=== PATIENT | male | born 1960 | race Caucasian/White ===

== ENCOUNTER → 2025-04-30 | Outpatient (CLI) | payer BC, SELFPAY ==
--- NOTE | 2025-04-30 09:40 | RAD_ITS ---
PROCEDURE: SHOULDER MIN 2 VIEWS 04/30/2025 REASON FOR EXAM: PAIN TECHNIQUE: SHOULDER MIN 2 VIEWS COMPARISON: None RAD/Shoulder min 2 Views IMPRESSION: No acute fracture or dislocations. Mild degenerative changes of the right shou lder. No large joint effusion. No acute soft tissue abnormalities. No radiographic foreign body. Reading Location: [id number]
--- NOTE | 2025-04-30 09:42 | RAD_ITS ---
EXAM: XR Lumbosacral Spine, 4 or 5 Views CLINICAL INDICATION: NEUROPATHY TECHNIQUE: Frontal, lateral and bilateral oblique views of the lumbar spine. COMPARISON: No relevant prior studies available. FINDINGS: VERTEBRAE: Mild endplate degenerative changes of the visualized spine. Mild facet arthropathy of L3-S1. No acute fracture. Normal alignment. SACRUM/COCCYX: Unremarkable as visualized. No acute fracture. DISC SPACES: No acute findings. No significant narrowing. SOFT TISSUES: Unremarkable. RAD/L/S Spine Min 4 Views IMPRESSION: Degenerative changes as above. Reading Location: [id number]
--- NOTE | 2025-04-30 09:42 | RAD_ITS ---
EXAM: XR Left Shoulder Complete, 2 or More Views CLINICAL INDICATION: BILATERAL SHOULDER PAIN TECHNIQUE: Two or more views of the left shoulder. COMPARISON: No relevant prior studies available. FINDINGS: BONES/JOINTS: Mild degenerative changes of the acromioclavicular and glenohumeral joints. No acute fracture. No dislocation. SOFT TISSUES: Unremarkable. RAD/Shoulder min 2 Views IMPRESSION: Degenerative changes as above. Reading Location: [id number]
[2025-04-30 10:02] LABS: Mucous, Urine 0 SEEN /hpf (<or=2+); Red Blood Cells-Urine 0 SEEN /hpf (0-5)
[2025-04-30 12:25] LABS: Color, Urine Yellow (Yellow); Glucose, Dipstick 1000 mg/dl (Normal); Ketone-Dipstick 5 mg/dl (Negative); Leukocyte Esterase-Dipstick Negative /ul (Negative); Nitrite-Dipstick Negative (Negative); Occult Blood-Urine Negative /ul (Negative); Protein-Dipstick Negative (Negative); Specific Gravity, Urine 1.015 (1.002-1.030); Urine Bilirubin Dipstick Negative (Negative)
[2025-04-30 12:30] LABS: Hematocrit 44.2 % (40-54); Hemoglobin 14.8 g/dL (13.0-16.5); Immature Granulocytes Count 0.020 X10^3/uL (0.0-0.0); Mean Corp Hgb Conc 33.5 g/dL (32-36); Mean Corpuscular Volume 89.8 fL (80-94); Mean Platelet Vol. 10.7 fl (6.2-12.0); NRBC Flagged by Analyzer 0 % (0-5); Platelet Count 190 K/mm3 (150-450); RBC Distribution Width CV 12.4 % (11.6-14.6); RBC Distribution Width SD 40.7 fl (35.1-43.9); Red Blood Count 4.92 M/mm3 (4.6-6.2); White Blood Count 6.0 K/mm3 (4.4-11.0)
[2025-04-30 12:32] LABS: Squamous Epithelial Cells - UA 0-5 SEEN /hpf (0-5)
[2025-04-30 13:34] LABS: Cholesterol 212 mg/dL (<=200); Low Density Lipoprotein Calc. 125 mg/dL; PSA,Total - Annual Screen 1.35 ng/mL (0.02-4.00); Triglycerides 182 mg/dL; Very Low Density Lipoprotein 36 mg/dL (5-40); cholesterol:hdl ratio screen 4.20
[2025-04-30 13:57] LABS: AST(SGOT) 25 U/L (<=37); Alanine Aminotransfer ALT/SGPT 37 U/L (<=46); Albumin, Serum 4.1 g/dL (3.4-4.8); Alkaline Phosphatase 105 U/L (40-129); Anion Gap 15 (5-15); BUN 9 mg/dL (4-19); BUN/Creat Ratio 9.0 RATIO (10-20); Calcium,Total 9.2 mg/dL (7.6-11.0); Carbon Dioxide 19.3 mmol/L (21.0-32.0); Chloride 98 mmol/L (98-108); Globulin 2.8 g/dL (2.2-4.2); Glucose 414 mg/dL (70-99); Potassium 4.1 mmol/L (3.3-5.1)
[2025-05-03 14:08] LABS: ANTINUCLEAR ANTIBODIES DIRECT Negative (Negative)
[2025-05-05 12:09] LABS: Testosterone, % Free 2.85 % (1.50-4.20); Testosterone, Free 7.78 ng/dL (5.00-21.00)
== END | disposition home or self-care (01) ==
LOC: MTLAB 09:42
PROVIDERS: PCP Internal Medicine; Referring Provider Internal Medicine; Visit Provider Internal Medicine
DX: M25.511 Pain in right shoulder (principal); M25.512 Pain in left shoulder; M54.16 Radiculopathy, lumbar region; Z13.6 Encounter for screening for cardiovascular disorders; N52.9 Male erectile dysfunction, unspecified; Z12.5 Encounter for screening for malignant neoplasm of prostate; R35.0 Frequency of micturition; R53.81 Other malaise; R53.83 Other fatigue; L30.9 Dermatitis, unspecified; R73.9 Hyperglycemia, unspecified
CPT/HCPCS: 36415; 72110; 73030; 80053; 80061; 81001; 83036; 84153; 84402; 84403; 85025; 86038; 86225; G0103

== ENCOUNTER 2025-05-28 08:30 | Outpatient (RCR) | payer BC, SELFPAY ==
--- NOTE | 2025-05-07 13:53 | HP.PTEVAL_ITS ---
Patient's Visit Information Visit Information Visit Information: ALEXI BRICENO is a 65 year old M referred to Physical Therapy by Dr. Gallo Palmer MD with a diagnosis of B Shoulder pain. Date of Evaluation: 05/07/25 Physical Therapist: BENNIE Maloney Visit Plan Frequency: 2x /Week Duration: 6 Weeks Plan: 2x/ WEEK FOR 6 WEEKs for end range PROM, AAROM, AROM of B shoulders, postural and RC strength. I feel pt will recover quickly and will gear most exercises toward HEP HEP: supine wand flexion, standing wand IR and ABD Subjective Subjective: Pt reports that he is feeling better on meloxicam but he had pain with raising pain overhead. It has been 3 days on the meloxicam. Sleeping at night is the worst sleeping with his arms above his head. His R arm started first and then it went over to the L and now the L hurts more than the R. It started hurting while he was still working and started last summer before he retired. 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 They did c-rays and showed some degeneration of the neck and lumbar. 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 He has DM his toes always hurt but since on medications for the DM his toes are better and feels his shoulders might be better also. He has no N&T. He feels that his shoulders are just painful and not so much weak. Pain R shoulder pain: Pain Intensity (Out of 10): 3 L shoulder pain: Pain Intensity (Out of 10): 7 Objective Objective: R handed: R shoulder flex 143 and L 112 degrees R shoulder ABD 112 and L 110 R shoulder ER 42 and L 30 R shoulder IR L2 and L1 UE MMT: R shoulder flexion 17.8 and L 14.7 R shoulder ABD 13.4 and L 11.3 R Shoulder ER 17.8 and L 17.9 R shoulder IR 19.3 and L 18.3 PROM: painful end feel B into flexion and ER B Balance/Special Test Scores Quick DASH Score: 40.9075 Goals Goal 1:: I HEP Goal Time Frame: 4-6 Weeks Goal 2:: Full AROM of B shoulder without pain Goal Time Frame: 4-6 Weeks Goal 3:: Be able to reach behind his head without having pain Goal Time Frame: 4-6 Weeks Goal 4:: Improve B shoulder AROM: (R shoulder flex 143 and L 112 degrees R shoulder ABD 112 and L 110 R shoulder ER 42 and L 30 R shoulder IR L2 and L1). Rehabilitation Potential Rehabilitation Potential: Good Anticipated Interventions Patient/Client Instruction: Educate patient on: Condition and Plan of Care For the Purpose of:: To decrease pain, To decrease swelling/inflammation, To increase ROM, To improve nutrient delivery to tissue, To improve muscle performance and motor function, To improve ability to perform ADL's, To increase tolerance to activity/condition/position, To improve performance and independence with ADL's, To improve ability of physical actions for home/community/work/leisure, To improve health of tissue, To decrease soft tissu e restriction and To increase flexibility/ROM Therapeutic Exercise to Include: Strength training, Endurance training, Postural training, Flexibilty training, Neuromotor development, Passive ROM, Active ROM and Scapular Strength/Stabilization For the Purpose of:: To decrease pain, To decrease swelling/inflammation, To increase ROM, To improve nutrient delivery to tissue, To improve muscle performance and motor function, To improve ability to perform ADL's, To increase tolerance to activity/condition/position, To improve performance and independenc e with ADL's, To decrease level of supervision to perform tasks, To improve ability of physical actions for home/community/work/leisure, To improve health of tissue, To decrease soft tissue restriction and To increase flexibility/ROM Manual Therapy Techniques to Include: Mobilization, Passive ROM and Soft tissue mobilization For the Purpose of:: To decrease pain, To decrease swelling/inflammation, To increase ROM, To improve nutrient delivery to tissue, To improve muscle performance and motor function and To improve ability to perform ADL's Text: Thank you for the opportunity to evaluate your patient. For Medicare and Medicare HMO plans, please review the plan of care and approve it. It will need to be FAXED BACK to us at [phone] for Medicare purposes. For Medicare only, by signing this I certify the plan of care. Please let me know if there are questions or concerns regarding this plan of care. Physician Signature: Date:
--- NOTE | 2025-08-11 13:03 | HP.PT.NRP ---
Patient Information Patient Information: ALEXI BRICENO was seen in my office for initial evaluation on 05/07/25. The following Plan of Care was established for this patient: POC Established Initial Frequency: 2x /Week Initial Duration: 6 Weeks Anticipated Interventions Patient/Client Instruction: Educate patient on: Condition and Plan of Care For the Purpose of:: To decrease pain, To decrease swelling/inflammation, To increase ROM, To improve nutrient delivery to tissue, To improve muscle performance and motor function, To improve ability to perform ADL's, To increase tolerance to activity/condition/position, To improve performance and independence with ADL's, To improve ability of physical actions for home/community/work/leisure, To improve health of tissue, To decrease soft tissue restriction and To increase flexibility/ROM Therapeutic Exercise to Include: Strength training, Endurance training, Postural training, Flexibilty training, Neuromotor development, Passive ROM, Active ROM and Scapular Strength/Stabilization For the Purpose of:: To decrease pain, To decrease swelling/inflammation, To increase ROM, To improve nutrient delivery to tissue, To improve muscle performance and motor function, To improve ability to perform ADL's, To increase tolerance to activity/condition/position, To improve performance and independence with ADL's, To decrease level of supervision to perform tasks, To improve ability of physical actions for home/community/work/leisure, To improve health of tissue, To decrease soft tissue restriction and To increase flexibility/ROM Manual Therapy Techniques to Include: Mobilization, Passive ROM and Soft tissue mobilization For the Purpose of:: To decrease pain, To decrease swelling/inflammation, To increase ROM, To improve nutrient delivery to tissue, To improve muscle performance and motor function and To improve ability to perform ADL's Last Seen Last Seen: This patient was last seen in our office 05/28/25. Pertinent comments regarding their Physical therapy will appear below: DC PT At this point I will be discontinuing this patient from physical therapy. I would be happy to see this patient again in the future if found appropriate by the physician. Thank you! Dunia Arteaga, BENNIE Balance/Gait/Functional tests Balance/Special Test Scores Quick DASH Score: 40.9011
== END 2025-05-28 19:00 | disposition home or self-care (01) ==
LOC: PT 08:30
PROVIDERS: PCP Internal Medicine; Referring Provider Internal Medicine; Visit Provider Internal Medicine
DX: M25.511 Pain in right shoulder (principal); M25.512 Pain in left shoulder
CPT/HCPCS: 97110; 97140; 97161

== ENCOUNTER → 2025-07-28 | Outpatient (CLI) | payer BC, SELFPAY ==
--- OUTSIDE RECORDS SUMMARY | 2025-07-28 12:33 | XMS RPT_ITS | CCD ---
Author Organization [facility] Care Team Providers Care Microfilmer Name Role Phone Swapnil CRAWFORD, Dr. Peralta Primary Care Provider Swapnil CRAWFORD, Dr. Peralta Referring Provider Spencer CRAWFORD, Dr. Holder Attending Provider [phone] Spencer CRAWFORD, Dr. Holder Primary Care Provider Spencer CRAWFORD, Dr. Holder Referring Provider [phone] NURSE, BIM Attending Provider Unavailable Shinr [employer] COMM[employer] LIAISON-CMoni Attending Provider [phone] Oleghe, Efewongbe Primary Care Unavailable Oleghe, Efewongbe Attending Unavailable Oleghe, Efewongbe Primary Care Unavailable Oleghe, Efewongbe Attending Unavailable Oleghe, Efewongbe Referring Unavailable Oleghe, Efewongbe Primary Care Unavailable Oleghe, Efewongbe Attending Unavailable Oleghe, Efewongbe Referring Unavailable Oleghe, Efewongbe Attending Unavailable Oleghe, Efewongbe Referring Unavailable Oleghe, Efewongbe Primary Care Unavailable Moni Stearns Attending Unavailable Oleghe, Efewongbe Referring Unavailable Oleghe, Efewongbe Primary Care Unavailable Fabian Kraft Primary Care Unavailable Fabian Kraft Referring Unavailable Oleghe, Efewongbe Attending Unavailable Medications Current Medications Medication Drug Class(es) Dates Sig (Normalized) Sig (Original) Blood-Glucose Meter (Freestyle Lite Meter) kit (4 sources) Start: 05-04-2025 Blood-Glucose Meter (Freestyle Lite Meter) kit Active 0 .MEDSUPPLY 1 0 May 04, 2025 12:00am Type 2 diabetes mellitus with hyperglycemia As directed, check blood glucose 3x daily for type 2 DM esomeprazole 20 mg delayed release oral capsule (5 sources) Proton Pump Inhibitor Start: 04-29-2025 take 1 capsule by mouth once daily Esomeprazole Magnesium (Nexium 24hr) 20 mg capsule,delayed release(DR/EC) Active 20 mg PO daily April 29, 2025 12:00am glimepiride 2 mg oral tablet (4 sources) Sulfonylurea Start: 05-04-2025 take 1 tablet by mouth once daily at breakfast Glimepiride 2 mg tablet Active 2 mg PO EVERY MORNING 30 2 May 04, 2025 12:00am administer with breakfast hydrocortisone 25 mg/ml topical cream (5 sources) Corticosteroid Start: 04-29-2025 Hydrocortisone 2.5 % cream Active 1 NMA TOPICAL TWICE A DAY as needed for rash 30 0 April 29, 2025 12:00am 3 ml insulin glargine 100 unt/ml pen injector (4 sources) Insulin Analog Start: 05-04-2025 Insulin Glargine (Lantus Solostar U-100 Insulin) 100 unit/mL (3 mL) insulin pen Active 10 U SC EVERY EVENING 15 1 May 04, 2025 12:00am meloxicam 15 mg oral tablet (3 sources) Nonsteroidal Anti-inflammatory Drug Start: 05-04-2025 take 1 tablet by mouth once daily at mealtime Meloxicam 15 mg tablet Active 15 mg PO daily 7 0 May 04, 2025 12:00am Take with food. metroNIDAZOLE 0.0075 mg/mg topical gel (4 sources) Nitroimidazole Antimicrobial Start: 04-29-2025 Metronidazole 0.75 % gel Active 1 NMA TOPICAL TWICE A DAY 45 3 April 29, 2025 12:00am Multivitamin tablet (5 sources) Start: 04-29-2025 Multivitamin tablet Active 1 {tbl} PO daily April 29, 2025 12:00am Problems Problem Classification Problem Date Documented Date Episodic/Chronic Allergic reactions (10 sources) Inflammatory dermatosis; Translations: [Dermatitis, unspecified] Onset: 04-29-2025 04-29-2025 Episodic Diabetes mellitus without complication (5 sources) Type 2 diabetes mellitus; Translations: [Type 2 diabetes mellitus without complications] Onset: 06-04-2025 05-04-2025 Chronic Diabetes mellitus without complication (4 sources) Hyperglycemia; Translations: [Hyperglycemia, unspecified] 05-03-2025 Episodic Diabetes mellitus without complication (4 sources) Diabetes mellitus without complication Genitourinary symptoms and ill-defined conditions (8 sources) Increased frequency of urination; Translations: [Frequency of micturition] 04-29-2025 Episodic Malaise and fatigue (7 sources) Malaise and fatigue; Translations: [Other malaise] Onset: 04-29-2025 04-29-2025 Episodic Other male genital disorders (10 sources) Male erectile dysfunction, unspecified; Translations: [Erectile dysfunction] Onset: 06-04-2025 04-29-2025 Chronic Other non-traumatic joint disorders (9 sources) Shoulder pain; Translations: [Pain in right shoulder] 04-29-2025 Episodic Other non-traumatic joint disorders (2 sources) Pain in right shoulder; Translations: [Pain in right shoulder] Onset: 05-06-2025 Episodic Other non-traumatic joint disorders (2 sources) Pain in left shoulder; Translations: [Pain in left shoulder] Onset: 04-29-2025 Episodic Other screening for suspected conditions (not mental disorders or infectious disease) (12 sources) Patient encounter status; Translations: [Encounter for screening for malignant neoplasm of prostate] Onset: 04-29-2025 04-29-2025 Episodic Spondylosis; intervertebral disc disorders; other back problems (10 sources) Lumbar radiculopathy; Translations: [Radiculopathy, lumbar region] Onset: 04-29-2025 04-29-2025 Episodic Unclassified (8 sources) E11.9 - Type 2 diabetes mellitus without complications Results Test Name Value Interpretation Reference Range Facility Internal Medicine Office [facility] 06-04-2025 Internal Medicine Office Visit [facility] [address] [place], [place] [address] OFFICE VISIT Date of Service: 06/04/25 MR#: [id number] Acct: [id number] Name: ALEXI BRICENO Rep #: [id number] : 1960 Provider: Dr. Gallo zepeda MD Age/Sex: 65/M Location[place] [facility] Status: Signed Intake Vital Signs 04/29/25 14:44 06/04/25 10:20 Height 5 ft 10 in 5 ft 10 in Weight: 206 lb BMI 29.5 BP 118/62 Blood Pressure Location Lt brachial Position Sitting Respiration 18 Pulse 94 Pulse Source Monitor Temp 97.4 F L Temp Source Temporal Pulse Oximetry (%) 92 Oxygen Delivery Method room air Intake Visit Reasons: 1 M FU Chief Complaint: 1 M FU Is patient in pain?: No Allergies No Known Allergies Allergy (Verified 06/04/25 10:21) Medications ???Medication ???Instructions ???Recorded ???Confirmed ???Type esomeprazole magnesium 20 mg 20 mg PO QDAY 04/29/25 04/29/25 Chemo Beanies capsule,delayed release (Nexium 24HR) hydrocortisone 2.5 % topical cream 1 applic topical BID PRN rash #3 0 04/29/25 06/04/25 Rx grams metronidazole 0.75 % topical gel 1 applic topical BID #45 grams 06/04/25 Rx multivitamin 1 tab PO QDAY 04/29/25 06/04/25 YPlan story blood sugar diagnostic (FreeStyle #200 ea 05/04/25 06/04/25 Rx Lite Strips) blood-glucose meter (FreeStyle #1 ea 05/04/25 06/04/25 Rx Lite Meter kit) glimepiride 2 mg tablet 2 mg PO QAM #30 tabs 05/04/2505/08 Rx insulin glargine 100 unit/mL (3 10 unit (0.1 mL) subcut QPM #15 mL 05/04/25 06/04/25 Rx mL) subcutaneous pen (Lantus Solostar U-100 Insulin) lancets 28 gauge (FreeStyle #200 ea 05/04/25 06/04/25 Rx Lancets) meloxicam 15 mg tablet 15 mg PO QDAY #7 tabs 05/04/25 Rx Have you fallen in the past year?: No Nurse's Note: pt reports frequent dizzy episodes that seem to correlate with low blood sugar readings [facility] Medical History (Updated 06/04/25 @ 11:[address] Gallo Palmer MD) Chronic neck pain Type 2 diabetes mellitus Blood glucose elevated Urinary frequency Facial dermatitis Lumbar radiculopathy Bilateral shoulder pain Screening for prostate cancer Erectile dysfunction Screening for cardiovascular condition Malaise and fatigue Esophageal ulcer Vasectomy evaluation GERD (gastroesophageal reflux disease) Kidney stone Surgical History Esophageal dilatation H/O umbilical hernia repair Family History Other Autoimmune disease Cancer Heart disease Social History Smokeless tobacco user: chewing tobacco alcohol intake: current alcohol intake frequency: holidays/special occasions only Alcohol type: beer and hard liquor substance use type: does not use what type of physical activity do you participate in: none HPI HPI Chief Complaint: 1 M FU Details: ALEXI BRICENO, is a 65-year-old male presenting for follow-up. Recent diagnosis of diabetes mellitus type 2 with A1c of 13.8 just a month ago. Over the past month, he has experienced symptoms of lightheadedness, nausea, and concerns for low blood glucose reading. Lowest blood sugar reading after meal was 110 and lowest fasting around low 100s. The patient reports adjustments in his dietary habits. A recent change in diet includes discontinuation of carbonated beverages and increased label reading for dietary content. Currently on glimepiride 2 mg a.m. and 10 units of insulin in the evening. Additionally, the patient reports historical concerns of erectile dysfunction which have not changed much since his last visit. Had testosterone level checked with total testosterone at 273. Continues to note fatigue. Regarding his musculoskeletal complaints, the patient presents with shoulder pain initially treated with physical therapy, though he observes the discomfort is more pronounced in his neck. He has ceased therapy as it was ineffectual in alleviating symptoms. He is open to physical therapy for his neck. A notable improvement in acid reflux symptoms has occurred since modifying his diet and discontinuing the use of Nexium. Attestation: Documentation on this patient encounter was supported using ambient scribe technology/ voice AI technology. The patient consented to recording for the purpose of documenting the encounter. Provider reviewed content of the generated note prior to signature. ROS Const Constitutional: No body ache, chills, excessive sweating, fatigue, fever(s), frequent falls, headache(s), snoring, weight change, sleep problems, abnormal sleep pattern or change in appetite Eyes Eyes: No blurry vision, change in vision, vision loss, dry eyes, eye pain or Lig (more content not included)... Normal [facility] Inital Evaluation (1) - PTon 05-07-2025 Inital Evaluation (1) - PT [facility] Physical Therapy [facility] [address] [place] [address] / REHABILITATION SERVICES INITIAL EVALUATION MR#: [id number] Acct: [id number] Name: ALEXI BRICENO Rep #: [id number] : 1960 65 From: [place] Referring Dr.: Dr. Gallo Palmer MD Status: REG RCR Insurance: [employer] SELF PAY INSURANCE Patient's Visit Information Visit Information Visit Information: ALEXI BRICENO is a 65 year old M referred to Physical Therapy by Dr. Gallo Palmer MD with a diagnosis of B Shoulder pain. Date of Evaluation: 05/07/25 Physical Therapist: BENNIE Maloney Visit Plan Frequency: 2x /Week Duration: 6 Weeks Plan: 2x/ WEEK FOR 6 WEEKs for end range PROM, AAROM, AROM of B shoulders, postural and RC strength. I feel pt will recover quickly and will gear most exercises toward HEP HEP: supine wand flexion, standing wand IR and ABD Subjective Subjective: Pt reports that he is feeling better on meloxicam but he had pain with raising pain overhead. It has been 3 days on the meloxicam. Sleeping at night is the worst sleeping with his arms above his head. His R arm started first and then it went over to the L and now the L hurts more than the R. It started hurting while he was still working and started last summer before he retired. 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 They did c-rays and showed some degeneration of the neck and lumbar. 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 He has DM his toes always hurt but since on medications for the DM his toes are better and feels his shoulders might be better also. He has no N T. He feels that his shoulders are just painful and not so much weak. Pain R shoulder pain: Pain Intensity (Out of 10): 3 L shoulder pain: Pain Intensity (Out of 10): 7 Objective Objective: R handed: R shoulder flex 143 and L 112 degrees R shoulder ABD 112 and L 110 R shoulder ER 42 and L 30 R shoulder IR L2 and L1 UE MMT: R shoulder flexion 17.8 and L 14.7 R shoulder ABD 13.4 and L 11.3 R Shoulder ER 17.8 and L 17.9 R shoulder IR 19.3 and L 18.3 PROM: painful end feel B into flexion and ER B Balance/Special Test Scores Quick DASH Score: 40.9075 Goals Goal 1:: I HEP Goal Time Frame: 4-6 Weeks Goal 2:: Full AROM of B shoulder without pain Goal Time Frame: 4-6 Weeks Goal 3:: Be able to reach behind his head without having pain Goal Time Frame: 4-6 Weeks Goal 4:: Improve B shoulder AROM: (R shoulder flex 143 and L 112 degrees R shoulder ABD 112 and L 110 R shoulder ER 42 and L 30 R shoulder IR L2 and L1). Rehabilitation Potential Rehabilitation Potential: Good Anticipated Interventions Patient/Client Instruction: Educate patient on: Condition and Plan of Care For the Purpose of:: To decrease pain, To decrease swelling/inflammation , To increase ROM, To improve nutrient delivery to tissue, To improve muscle performance and motor function, To improve ability to perform ADL's, To increase tolerance to activity/condition/po sition, To improve performance and independence with ADL's, To improve ability of physical actions for home/community/work/l eisure, To improve health of tissue, To decrease soft tissue restriction and To increase flexibility/ROM Therapeutic Exercise to Include: Strength training, Endurance training, Postural training, Flexibilty training, Neuromotor development, Passive ROM, Active ROM and Scapular Strength/Stabilizatio n For the Purpose of:: To decrease pain, To decrease swelling/inflammation , To increase ROM, To improve nutrient delivery to tissue, To improve muscle performance and motor function, To improve ability to perform ADL's, To increase tolerance to activity/condition/po sition, To improve performance and independence with ADL's, To decrease level of supervision to perform tasks, To improve ability of physical actions for home/community/work/l eisure, To improve health of tissue, To decrease soft tissue restriction and To increase flexibility/ROM Manual Therapy Techniques to Include: Mobilization, Passive ROM and Soft tissue mobilization For the Purpose of:: To decrease pain, To decrease swelling/inflammation , To increase ROM, To improve nutrient delivery to tissue, To improve muscle performance and motor function and To improve ability to perform ADL's Text: Thank you for the opportunity to evaluate your patient. For Medicare and Medicare HMO plans, please review the plan of care and approve it. It will need to be FAXED BACK to us at [phone] for Medicare purposes. For Medicare only, by signing this I certify the plan of care. Please let me know if there are questions or concerns regarding this plan of care. Physician Signature: Date : 05/07/25 1353 (more content not included)... Normal [facility] Office Visit Reporton 2024 Office Visit Report [facility] [address] [place] [address] OFFICE VISIT Date of Service: 05/06/25 MR#: [id number] Acct: [id number] Patient: ALEXI BIRCENO Rep #: [id number] : 1960 Provider: SALVADOR KOHLER Age/Sex: 65/M Location[place] [facility] Status: Signed Intake Vital Signs 04/29/25 14:44 Height 5 ft 10 in Weight: 210 lb 2 oz BMI 30.1 BP 100/64 Blood Pressure Location Lt brachial Position Sitting Respiration 16 Pulse 92 Pulse Source Monitor Temp 97.6 F L Temp Source Temporal Pulse Oximetry (%) 96 Oxygen Delivery Method room air Intake Visit Reasons: Glucose Meter Check Chief Complaint: Establish Care. Concerns. Allergies No Known Allergies Allergy (Verified 04/29/25 14:29) Nurse's Note: Pt shown how to use glucometer correctly as it just said error. Pt's states she thought that the blood went on the white part not the black part so she put it in between. Pt then demonstarted the scoop method back. Pt did not start lantus as no needles to give it were called in and it stated that in big on the box. Verbal given for [id number] pen needles 1box no refills. Printed pt ada diet and BG log pt and verbalized undertsanding and thanked me. Pt has f/u in 1 month and has appointment on 06/03 w/ [facility] nutrion services. Pt's bs w/ coffee and cream was 291. Educated pt on sign of hypo and hyperglycemia . Pt and already versed on how to give lantus due to wifes migrane med. 05/06/25 1511 Date Moni Stearns [employer] COMM[employer] LIAISON-C Cosigner Signature: Date (if applicable) CC: Normal [facility] Testosterone, Total / Freeon 05-05-2025 TESTOSTER,FREE 7.78 ng/dL Normal 5.00-21.00 [facility] Comment on above: Order Comment: N Performed By: #### L 3100.5450, L400.0001, L500.4050, L3100.5310, L100.0100, L500.4100, L501.9910 ####[facility] [address] [place], [address] TESTOSTER,TOTAL 273 ng/dL Normal 264-916 [facility] Comment on above: Order Comment: N Result Comment: Adul t male reference interval is based on a population of healthy nonobese males (BMI <30) between 19 and 39 years old. Breann et.al. JCEM 2017,102;1656-0534. PMID: [id number]. Performed By: #### L 3100.5450, L400.0001, L500.4050, L3100.5310, L100.0100, L500.4100, L501.9910 ####[facility] [address] [place], [place], [address] TESTOSTERONE,%F 2.85 Normal 1.50-4.20 [facility] Comment on above: Order Comment: N Result Comment: Perf ormed at: [facility] [id number] Mixing Machine Attendant: Kp Gan PhD, Phone: [phone] Performed at: - [facility] [id number] Mixing Machine Attendant: Karel Lomax MD, Phone: [phone] Performed By: #### L 3100.5450, L400.0001, L500.4050, L3100.5310, L100.0100, L500.4100, L501.9910 ####[facility] [address] [place], [place], [address] AMANDA w/ Reflex Mult Confirmon 05-04-2025 ANTI-DNA (DS)AB TNP Normal [facility] Comment on above: Performed By: #### L 3100.5450, L400.0001, L500.4050, L3100.5310, L100.0100, L500.4100, L501.9910 #### [facility] [address] [place], [place], [id number] ANTI-SS-A TNP Normal [facility] Comment on above: Performed By: #### L 3100.5450, L400.0001, L500.4050, L3100.5310, L100.0100, L500.4100, L501.9910 #### [facility] [address] [place], [place], [id number] ANTI-SS-B TNP Normal [facility] Comment on above: Performed By: #### L 3100.5450, L400.0001, L500.4050, L3100.5310, L100.0100, L500.4100, L501.9910 #### [facility] [address] [place], [address] Hemoglobin A1con 05-04-2025 HbA1c (Bld) [Mass fraction] 13.8 % High <=5.6 [facility] Comment on above: Result Comment: Norm al < 5.7 % Prediabetic 5.7 - 6.4 % Diabetic >or= 6.5 % Please note range changes. Performed By: #### L 501.9985 #### [facility] [address] [place], [place], [address] Hemoglobin A1c percentageOrd ered By: Gallo Palmer on 05-03-2025 HbA1c (Bld) [Mass fraction] 13.8 % High <5.7 [facility] Comment on above: Normal < 5.7 % Predi abetic 5.7 - 6.4 % Diabetic >or= 6.5 % Please note range changes. Absolute lymphocyte countOrd ered By: Gallo Palmer on 04-30-2025 Lymphocytes Auto (Unsp spec) [#/Vol] 1.98 10*3/uL 0.83-4.51 [facility] Absolute neutrophil countOrd ered By: Gallo Palmer on 04-30-2025 Neutrophils (Bld) [#/Vol] 3.2 10*3/uL 2.0-7.7 [facility] Anion gap in Serum or Plasma Ordered By: Gallo Palmer on 04-30-2025 Anion gap [Moles/Vol] 15 mmol/L 5-15 [facility] Automated lymphocyte count a s percentage of total leukocytesOrdered By: Gallo Palmer on 04-30-2025 Lymphocytes/100 WBC Auto (Unsp spec) 33.2 % 19-41 [facility] BUN/creatinine ratioOrdered By: Gallo Palmer on 04-30-2025 Urea nitrogen/Creatinine [Mass ratio] 9.0 mg/mg Low 10-20 [facility] Basophil percentageOrdered B y: Gallo Palmer on 04-30-2025 Basophils/100 WBC (Bld) 1.0 % 0-1 [facility] Bilirubin Test strip Ql (U)O rdered By: Gallo Palmer on 04-30-2025 Bilirubin Ql (U) Negative Negative [facility] Bilirubin, totalOrdered By: Gallo Palmer on 04-30-2025 Bilirubin [Mass/Vol] 0.58 mg/dL 0.00-1.30 [facility] CBC W/Diff, Automatedon 04-07 Absolute Lymph 1.98 X10 3/uL Normal 0.83-4.51 [facility] Comment on above: Performed By: #### L 3100.5450, L400.0001, L500.4050, L3100.5310, L100.0100, L500.4100, L501.9910 #### [facility] [address] [place], [address] Absolute Neut 3.2 X10 3/uL Normal 2.0-7.7 [facility] Comment on above: Performed By: #### L 3100.5450, L400.0001, L500.4050, L3100.5310, L100.0100, L500.4100, L501.9910 #### [facility] [address] [place], [address] Basophils/100 WBC (Bld) 1.0 % Normal 0-1 [facility] Comment on above: Performed By: #### L 3100.5450, L400.0001, L500.4050, L3100.5310, L100.0100, L500.4100, L501.9910 #### [facility] [address] [place], [address] Eosinophils/100 WBC (Bld) 5.5 % High 0-5 [facility] Comment on above: Performed By: #### L 3100.5450, L400.0001, L500.4050, L3100.5310, L100.0100, L500.4100, L501.9910 #### [facility] [address] [place], [address] Erythrocyte distribution width (RBC) [Ratio] 12.4 % Normal 11.6-14.6 [facility] Comment on above: Performed By: #### L 3100.5450, L400.0001, L500.4050, L3100.5310, L100.0100, L500.4100, L501.9910 #### [facility] [address] [place], [address] Hematocrit (Bld) [Volume fraction] 44.2 % Normal 40-54 [facility] Comment on above: Performed By: #### L 3100.5450, L400.0001, L500.4050, L3100.5310, L100.0100, L500.4100, L501.9910 #### [facility] [address] [facility] [place], [address] Hemoglobin (Bld) [Mass/Vol] 14.8 g/dL Normal 13.0-16.5 [facility] Comment on above: Performed By: #### L 3100.5450, L400.0001, L500.4050, L3100.5310, L100.0100, L500.4100, L501.9910 #### [facility] [address] [facility] [place], [address] IG% 0.300 Normal 0.0-0.9 [facility] Comment on above: Result Comment: IG% - Immature Granulocytes (promyelocytes, myelocytes and metamyelocytes) > 1% indicates that a LEFT SHIFT is Present. Performed By: #### L 3100.5450, L400.0001, L500.4050, L3100.5310, L100.0100, L500.4100, L501.9910 #### [facility] [address] [place] [place], [address] Lymphocytes/100 WBC (Bld) 33.2 % Normal 19-41 [facility] Comment on above: Performed By: #### L 3100.5450, L400.0001, L500.4050, L3100.5310, L100.0100, L500.4100, L501.9910 #### [facility] [address] [place], [address] MCH (RBC) [Entitic mass] 30.1 pg Normal 27.0-32.0 [facility] Comment on above: Performed By: #### L 3100.5450, L400.0001, L500.4050, L3100.5310, L100.0100, L500.4100, L501.9910 #### [facility] [address] [place], [address] MCHC (RBC) [Mass/Vol] 33.5 g/dL Normal 32-36 [facility] Comment on above: Performed By: #### L 3100.5450, L400.0001, L500.4050, L3100.5310, L100.0100, L500.4100, L501.9910 #### [facility] [address] [place], [address] MCV (RBC) [Entitic vol] 89.8 fL Normal 80-94 [facility] Comment on above: Performed By: #### L 3100.5450, L400.0001, L500.4050, L3100.5310, L100.0100, L500.4100, L501.9910 #### [facility] [address] [place], [address] Monocytes/100 WBC (Bld) 5.9 % Normal 0-10 [facility] Comment on above: Performed By: #### L 3100.5450, L400.0001, L500.4050, L3100.5310, L100.0100, L500.4100, L501.9910 #### [facility] [address] [place], [address] Neutrophils/100 WBC (Bld) 54.1 % Normal 47-70 [facility] Comment on above: Performed By: #### L 3100.5450, L400.0001, L500.4050, L3100.5310, L100.0100, L500.4100, L501.9910 #### [facility] [address] [place], [address] Nucleated RBC (Bld) [#/Vol] 0 10*3/uL Normal 0-5 [facility] Comment on above: Performed By: #### L 3100.5450, L400.0001, L500.4050, L3100.5310, L100.0100, L500.4100, L501.9910 #### [facility] [address] [place], [address] Platelet mean volume (Bld) [Entitic vol] 10.7 fL Normal 6.2-12.0 [facility] Comment on above: Performed By: #### L 3100.5450, L400.0001, L500.4050, L3100.5310, L100.0100, L500.4100, L501.9910 #### [facility] [address] [place], [address] Platelets (Bld) [#/Vol] 190 10*3/uL Normal 150-450 [facility] Comment on above: Performed By: #### L 3100.5450, L400.0001, L500.4050, L3100.5310, L100.0100, L500.4100, L501.9910 #### [facility] [address] [place], [address] RBC (Bld) [#/Vol] 4.92 10*6/uL Normal 4.6-6.2 [facility] Comment on above: Performed By: #### L 3100.5450, L400.0001, L500.4050, L3100.5310, L100.0100, L500.4100, L501.9910 #### [facility] [address] [place], [address] RDW SD 40.7 fl Normal 35.1-43.9 [facility] Comment on above: Performed By: #### L 3100.5450, L400.0001, L500.4050, L3100.5310, L100.0100, L500.4100, L501.9910 #### [facility] [address] [place], [address] WBC (Bld) [#/Vol] 6.0 10*3/uL Normal 4.4-11.0 [facility] Comment on above: Performed By: #### L 3100.5450, L400.0001, L500.4050, L3100.5310, L100.0100, L500.4100, L501.9910 #### [facility] [address] [place], [place], [id number] Calculated very low density lipoprotein (VLDL) cholesterol measurementOrdered By: Gallo Palmer on 04-30-2025 Calculated very low density lipoprotein (VLDL) cholesterol measurement 36 mg/dL 5-40 [facility] Carbon dioxide, total [Moles /volume] in Central venous bloodOrdered By: Gallo Palmer on 04-30-2025 CO2 [Moles/Vol] 19.3 mmol/L Low 21.0-32.0 [facility] Chloride assayOrdered By: Evelina Palmer on 04-30-2025 Chloride [Moles/Vol] 98 mmol/L 98-108 [facility] Comprehensive Metabolic Prof ilon 04-30-2025 Albumin [Mass/Vol] 4.1 g/dL Normal 3.4-4.8 [facility] Comment on above: Performed By: #### L 3100.5450, L400.0001, L500.4050, L3100.5310, L100.0100, L500.4100, L501.9910 ####[facility] [address] [place], [address] Albumin/Globulin [Mass ratio] 1.5 {ratio} Normal 0.9-2.4 [facility] Comment on above: Performed By: #### L 3100.5450, L400.0001, L500.4050, L3100.5310, L100.0100, L500.4100, L501.9910 ####[facility] [address] [place], [address] ALK PHOS 105 U/L Normal 40-129 [facility] Comment on above: Performed By: #### L 3100.5450, L400.0001, L500.4050, L3100.5310, L100.0100, L500.4100, L501.9910 ####[facility] [address] [place], [address] ALT [Catalytic activity/Vol] 37 U/L Normal <=46 [facility] Comment on above: Performed By: #### L 3100.5450, L400.0001, L500.4050, L3100.5310, L100.0100, L500.4100, L501.9910 ####[facility] [address] [place], [address] AST [Catalytic activity/Vol] 25 U/L Normal <=37 [facility] Comment on above: Result Comment: Hemo lysis present, Results??could be affected. ?? Performed By: #### L 3100.5450, L400.0001, L500.4050, L3100.5310, L100.0100, L500.4100, L501.9910 ####[facility] [address] [place], [address] Bilirubin [Mass/Vol] 0.58 mg/dL Normal 0.00-1.30 [facility] Comment on above: Performed By: #### L 3100.5450, L400.0001, L500.4050, L3100.5310, L100.0100, L500.4100, L501.9910 ####[facility] [address] [place], [address] BUN/CRE 9.0 RATIO Low 10-20 [facility] Comment on above: Performed By: #### L 3100.5450, L400.0001, L500.4050, L3100.5310, L100.0100, L500.4100, L501.9910 ####[facility] [address] [place], [address] Calcium [Mass/Vol] 9.2 mg/dL Normal 7.6-11.0 [facility] Comment on above: Performed By: #### L 3100.5450, L400.0001, L500.4050, L3100.5310, L100.0100, L500.4100, L501.9910 ####[facility] [address] [place], [address] Chloride [Moles/Vol] 98 mmol/L Normal 98-108 [facility] Comment on above: Performed By: #### L 3100.5450, L400.0001, L500.4050, L3100.5310, L100.0100, L500.4100, L501.9910 ####[facility] [address] [place], [address] CO2 [Moles/Vol] 19.3 mmol/L Low 21.0-32.0 [facility] Comment on above: Performed By: #### L 3100.5450, L400.0001, L500.4050, L3100.5310, L100.0100, L500.4100, L501.9910 ####[facility] [address] [place], [address] Creatinine [Mass/Vol] 0.98 mg/dL Normal 0.70-1.20 [facility] Comment on above: Performed By: #### L 3100.5450, L400.0001, L500.4050, L3100.5310, L100.0100, L500.4100, L501.9910 ####[facility] [address] [place], [address] GAP 15 Normal 5-15 [facility] Comment on above: Performed By: #### L 3100.5450, L400.0001, L500.4050, L3100.5310, L100.0100, L500.4100, L501.9910 ####[facility] [address] [place], [place], [address] GFR/1.73 sq M.predicted among non-blacks MDRD (S/P/Bld) [Vol rate/Area] 86 mL/min/{1.73_m2} Normal >60 [facility] Comment on above: Result Comment: mL/m in/1.73m2 CKD-EPI Creatinine Equation (2020) Performed By: #### L 3100.5450, L400.0001, L500.4050, L3100.5310, L100.0100, L500.4100, L501.9910 ####[facility] [address] [place], [place], [address] Globulin (S) [Mass/Vol] 2.8 g/dL Normal 2.2-4.2 [facility] Comment on above: Performed By: #### L 3100.5450, L400.0001, L500.4050, L3100.5310, L100.0100, L500.4100, L501.9910 ####[facility] [address] [place], [place], [address] Glucose [Mass/Vol] 414 mg/dL High 70-99 [facility] Comment on above: Performed By: #### L 3100.5450, L400.0001, L500.4050, L3100.5310, L100.0100, L500.4100, L501.9910 ####[facility] [address] [place], [address] Potassium [Moles/Vol] 4.1 mmol/L Normal 3.3-5.1 [facility] Comment on above: Result Comment: Hemo lysis present, Results??could be affected. ?? Performed By: #### L 3100.5450, L400.0001, L500.4050, L3100.5310, L100.0100, L500.4100, L501.9910 ####[facility] [address] [place], [address] Sodium [Moles/Vol] 132 mmol/L Low 133-145 [facility] Comment on above: Performed By: #### L 3100.5450, L400.0001, L500.4050, L3100.5310, L100.0100, L500.4100, L501.9910 ####[facility] [address] [place], [address] T PROT 6.9 g/dL Normal 5.9-8.4 [facility] Comment on above: Performed By: #### L 3100.5450, L400.0001, L500.4050, L3100.5310, L100.0100, L500.4100, L501.9910 ####[facility] [address] [place], [place], [phone] Urea nitrogen [Mass/Vol] 9 mg/dL Normal 4-19 [facility] Comment on above: Performed By: #### L 3100.5450, L400.0001, L500.4050, L3100.5310, L100.0100, L500.4100, L501.9910 ####[facility] [address] [place], [address] Eosinophil percentageOrdered By: Gallo Palmer on 04-30-2025 Eosinophils/100 WBC (Bld) 5.5 % High 0-5 [facility] Erythrocyte distribution wid th ratioOrdered By: Gallo Palmer on 04-30-2025 Erythrocyte distribution width (RBC) [Ratio] 12.4 % 11.6-14.6 [facility] Erythrocyte distribution wid th standard deviationOrdered By: Gallo Palmer on 04-30-2025 Erythrocyte distribution width (RBC) [Ratio] 40.7 fl 35.1-43.9 [facility] Free testosterone percentage Ordered By: Gallo Palmer on 04-30-2025 Testosterone Free/Testosterone.total [Mass fraction] 2.85 % 1.50-4.20 [facility] Comment on above: Performed at: [facility] [address] [id number] Director: Kp Gan PhD, Phone: [phone] at: [facility] [id number] Director: Karel Lomax MD, Phone: [phone] Glomerular filtration rate ( GFR) estimation/1.73 sq m using serum, plasma, or whole bOrdered By: Gallo Palmer on 04-30-2025 GFR/1.73 sq M.predicted among non-blacks MDRD (S/P/Bld) [Vol rate/Area] 86 mL/min/{1.73_m2} >60 [facility] Comment on above: mL/min/1.73m2 CKD-EP I Creatinine Equation (2020) Hematocrit Auto (Bld) [Volum e fraction]Ordered By: Gallo Palmer on 04-30-2025 Hematocrit (Bld) [Volume fraction] 44.2 % 40-54 [facility] Hemoglobin measurementOrdere d By: Gallo Palmer on 04-30-2025 Hemoglobin (Bld) [Mass/Vol] 14.8 g/dL 13.0-16.5 [facility] Immature granulocytes/100 WB C Auto (Bld)Ordered By: Gallo Palmer on 04-30-2025 Immature granulocytes/100 WBC (Bld) 0.300 % 0.0-0.9 [facility] Comment on above: IG% - Immature Granu locytes (promyelocytes, myelocytes and metamyelocytes) > 1% indicates that a LEFT SHIFT is Present. Ketones Test strip Ql (U)Ord ered By: Gallo Palmer on 04-30-2025 Ketones Ql (U) 5 mg/dl High Negative [facility] L/S Spine Min 4 Viewson 04-07 L/S Spine Min 4 Views [facility] Services [address] [place] [address] L/S Spine Min 4 Views MR#: [id number] Acct: [id number] Name: ALEXI BRICENO Rep #: [id number] : 1960 M 65 From: Mehdi Buenrostro MD PCP: Dr. Gallo Palmer MD Status: REG CLI Study: L/S Spine Min 4 Views Date of Exam: 04/30/25 Exam# [id number] Ordering Dr: Gallo Palmer MD EXAM: XR Lumbosacral Spine, 4 or 5 Views CLINICAL INDICATION: NEUROPATHY TECHNIQUE: Frontal, lateral and bilateral oblique views of the lumbar spine. COMPARISON: No relevant prior studies available. FINDINGS: VERTEBRAE: Mild endplate degenerative changes of the visualized spine. Mild facet arthropathy of L3-S1. No acute fracture. Normal alignment. SACRUM/COCCYX: Unremarkable as visualized. No acute fracture. DISC SPACES: No acute findings. No significant narrowing. SOFT TISSUES: Unremarkable. RAD/L/S Spine Min 4 Views IMPRESSION: Degenerative changes as above. Reading Location: [facility] CC: Dr. Gallo Palmer MD Polygraph Examiner: Signed Normal [facility] LDL calc ser/plasOrdered By: Gallo Palmer on 04-30-2025 Cholesterol in LDL [Mass/Vol] 125 mg/dL [facility] Comment on above: Tlkrrkhaiq=534-914 m g/dL & Higher Pihk=568 mg/dL or greater Laboratory - Chemistry and C hemistry - challengeOrdered By: Gallo Palmer on 04-30-2025 AST [Catalytic activity/Vol] 25 U/L <38 [facility] Comment on above: Hemolysis present, R esults could be affected. Lipid Profileon 04-30-2025 CHOL:HDL 4.20 Normal [facility] Comment on above: Performed By: #### L 3100.5450, L400.0001, L500.4050, L3100.5310, L100.0100, L500.4100, L501.9910 ####[facility] [address] [place], [address] Cholesterol [Mass/Vol] 212 mg/dL High <=200 [facility] Comment on above: Result Comment: Chol esterol level, Desirable <200 mg/dL Borderline high cholesterol 200-239 mg/dL High cholesterol >=240 mg/dL Recommendations of the NCEP Adult Treatment Panel for the following risk-cutoff thresholds for the [place] population. Performed By: #### L 3100.5450, L400.0001, L500.4050, L3100.5310, L100.0100, L500.4100, L501.9910 ####[facility] [address] [place], [address] Cholesterol in HDL [Mass/Vol] 51 mg/dL Normal [facility] Comment on above: Result Comment: Edna onal Cholesterol Education Program (NCEP) guidelines: <40 mg/dL: Low HDL-cholesterol (major risk factor for CHD) >= 60 mg/dL: High HDL-cholesterol (negative risk factor for CHD) HDL-cholesterol is affected by a number of factors, e.g. smoking, exercise, hormones, sex and age. Performed By: #### L 3100.5450, L400.0001, L500.4050, L3100.5310, L100.0100, L500.4100, L501.9910 ####[facility] [address] [place], [address] Cholesterol in LDL [Mass/Vol] 125 mg/dL Normal [facility] Comment on above: Result Comment: Bord tgcgrr=668-285 mg/dL Higher Acul=601 mg/dL or greater Performed By: #### L 3100.5450, L400.0001, L500.4050, L3100.5310, L100.0100, L500.4100, L501.9910 ####[facility] [address] [place], [place], [address] Cholesterol in VLDL [Mass/Vol] 36 mg/dL Normal 5-40 [facility] Comment on above: Performed By: #### L 3100.5450, L400.0001, L500.4050, L3100.5310, L100.0100, L500.4100, L501.9910 ####[facility] [address] [place], [place], [address] Triglyceride [Mass/Vol] 182 mg/dL Normal [facility] Comment on above: Result Comment: The drugs N-Acetylcysteine and Metamizole may falsely depress this assay. Normal range: <150 mg/dL Borderline High: 150-199 mg/dL High: 200-499 mg/dL Very High: >500 mg/dL Performed By: #### L 3100.5450, L400.0001, L500.4050, L3100.5310, L100.0100, L500.4100, L501.9910 ####[facility] [address] [place], [place], [id number] MCV (mean corpuscular volume ) determinationOrdered By: Gallo Palmer on 04-30-2025 MCV (RBC) [Entitic vol] 89.8 fL 80-94 [facility] Mean corpuscular hemoglobin (MCH) determinationOrdered By: Gallo Palmer on 04-30-2025 MCH (RBC) [Entitic mass] 30.1 pg 27.0-32.0 [facility] Mean corpuscular hemoglobin concentration (MCHC) determinationOrdered By: Gallo Palmer on 04-30-2025 MCHC (RBC) [Mass/Vol] 33.5 g/dL 32-36 [facility] Mean platelet volume determi nationOrdered By: Gallo Palmer on 04-30-2025 Platelet mean volume (Bld) [Entitic vol] 10.7 fL 6.2-12.0 [facility] Microscopic analysis of urin e for red blood cells (RBC)Ordered By: Gallo Palmer on 04-30-2025 Microscopic analysis of urine for red blood cells (RBC) 0 SEEN /hpf 0-5 [facility] Monocyte percentageOrdered B y: Gallo Palmer on 04-30-2025 Monocytes/100 WBC (Bld) 5.9 % 0-10 [facility] Mucus LM Ql (Urine sed)Order ed By: Gallo Palmer on 04-30-2025 Mucus Ql (Urine sed) 0 SEEN /hpf [facility] Neutrophil percentageOrdered By: Ruthhamiltonzeeshan Palmer on 04-30-2025 Neutrophils/100 WBC (Bld) 54.1 % 47-70 [facility] Nitrite Test strip Ql (U)Ord ered By: Gallo Palmer on 04-30-2025 Nitrite Ql (U) Negative Negative [facility] Nucleated red blood cell per centageOrdered By: Gallo Palmer on 04-30-2025 Nucleated RBC/100 WBC (Bld) [Ratio] 0 % 0-5 [facility] PSA,Total - Annual Screenon 04-30-2025 PSA,TOT SCREEN 1.35 ng/mL Normal 0.02-4.00 [facility] Comment on above: Result Comment: This test was performed using the [employer] tPSA method. Measured values of a patient??sample can vary depending on the testing procedure used. PSA values determined on patient samples by different testing procedures cannot be used interchangeably. If there is a change in PSA assays while monitoring therapy, sequential testing should be performed to confirm baseline values. Performed By: #### L 3100.5450, L400.0001, L500.4050, L3100.5310, L100.0100, L500.4100, L501.9910 ####[facility] [address] [place], [address] Platelet countOrdered By: Evelina Palmer on 04-30-2025 Platelets (Bld) [#/Vol] 190 10*3/uL 150-450 [facility] Potassium measurement (mass/ volume)Ordered By: Gallo Palmer on 04-30-2025 Potassium (Unsp spec) [Mass/Vol] 4.1 mmol/L 3.3-5.1 [facility] Comment on above: Hemolysis present, R esults could be affected. Protein Test strip Ql (U)Ord ered By: Gallo Palmer on 04-30-2025 Protein Ql (U) Negative Negative [facility] RBC Auto (Bld) [#/Vol]Ordere d By: Gallo Palmer on 04-30-2025 RBC (Bld) [#/Vol] 4.92 10*6/uL 4.6-6.2 [facility] Screening total cholesterol/ high density lipoprotein (HDL) cholesterol ratioOrdered By: Gallo Palmer on 04-30-2025 Cholesterol.total/Choles terol in HDL [Mass ratio] 4.20 {ratio} [facility] Serum DNA double strand anti body assay (units/volume)Ordered By: Gallo Palmer on 04-30-2025 DNA double strand Ab Qn (S) [facility] Comment on above: Test not performed Serum Scl-70 antibody assay (units/volume)Ordered By: Gallo Palmer on 04-30-2025 SCL-70 extractable nuclear Ab Qn (S) [facility] Comment on above: Test not performed Serum creatinine measurement (mass/volume)Ordered By: Gallo Palmer on 04-30-2025 Creatinine [Mass/Vol] 0.98 mg/dL 0.70-1.20 [facility] Serum globulin measurementOr dered By: Gallo Palmer on 04-30-2025 Globulin (S) [Mass/Vol] 2.8 g/dL 2.2-4.2 [facility] Serum glucose measurement (m ass/volume)Ordered By: Gallo Palmer on 04-30-2025 Glucose [Mass/Vol] 414 mg/dL High 70-99 [facility] Serum or plasma alanine talbot otransferase (ALT) measurementOrdered By: Gallo Palmer on 04-30-2025 ALT [Catalytic activity/Vol] 37 U/L <47 [facility] Serum or plasma albumin edel urement (mass/volume)Ordered By: Gallo Palmer on 04-30-2025 Albumin [Mass/Vol] 4.1 g/dL 3.4-4.8 [facility] Serum or plasma albumin/glob ulin mass ratioOrdered By: [facility] Dustinsamantha 04-30-2025 Albumin/Globulin [Mass ratio] 1.5 {ratio} 0.9-2.4 [facility] Serum or plasma alkaline humberto sphatase measurementOrdered By: [facility] Dustinsamantha 04-30-2025 ALP [Catalytic activity/Vol] 105 U/L 40-129 [facility] Serum or plasma calcium edel urement (mass/volume)Ordered By: [facility] 04-30-2025 Calcium [Mass/Vol] 9.2 mg/dL 7.6-11.0 [facility] Serum or plasma cholesterol in HDL measurement (mass/volume)Ordered By: Gallo Palmer 04-30-2025 Cholesterol in HDL [Mass/Vol] 51 mg/dL >40 [facility] Comment on above: National Cholesterol Education Program (NCEP) guidelines:<40 mg/dL: Low HDL-cholesterol (major risk factor for CHD)>= 60 mg/dL: High HDL-cholesterol (negative risk factor for CHD)HDL-cholesterol is affected by a number of factors, e.g. smoking, exercise, hormones, sex and age. Serum or plasma cholesterol measurement (mass/volume)Ordered By: Danielzeeshan Palmer on 04-30-2025 Cholesterol [Mass/Vol] 212 mg/dL High <201 [facility] Comment on above: Cholesterol level, D esirable <200 mg/dLBorderline high cholesterol 200-239 mg/dLHigh cholesterol >=240 mg/dLRecommendations of the NCEP Adult Treatment Panel for the following risk-cutoff thresholds for the [place] population. Serum or plasma free testost erone measurement (mass/volume)Ordered By: Danielzeeshan Palmer 04-30-2025 Testosterone Free [Mass/Vol] 7.78 ng/dL 5.00-21.00 [facility] Serum or plasma urea nitroge n measurement (mass/volume)Ordered By: Gallo Palmer on 04-30-2025 Urea nitrogen [Mass/Vol] 9 mg/dL 4-19 [facility] Shoulder min 2 Viewson 04-30 Shoulder min 2 Views [facility] Imaging Services [address] [place], [place] [id number] [phone] Shoulder min 2 Views MR#: [id number] Acct: [id number] Name: KAITYALEXI SANTO Rep #: [id number] : 1960 M 65 From: Mehdi Buenrostro MD PCP: Dr. Gallo Palmer MD Status: REG CLI Study: Shoulder min 2 Views Date of Exam: 04/30/25 Exam# [id number] Ordering Dr: Gallo Palmer MD EXAM: XR Left Shoulder Complete, 2 or More Views CLINICAL INDICATION: BILATERAL SHOULDER PAIN TECHNIQUE: Two or more views of the left shoulder. COMPARISON: No relevant prior studies available. FINDINGS: BONES/JOINTS: Mild degenerative changes of the acromioclavicular and glenohumeral joints. No acute fracture. No dislocation. SOFT TISSUES: Unremarkable. RAD/Shoulder min 2 Views IMPRESSION: Degenerative changes as above. Reading Location: [facility] CC: Dr. Gallo Palmer MD Polygraph Examiner: Signed Normal [facility] Shoulder min 2 Views [facility] [address] [place], [place] [address] Shoulder min 2 Views MR#: [id number] Acct: [id number] Name: EMY BRICENODoreen BLANCHARD Rep #: [id number] : 1960 M 65 From: Charli Navas PCP: Dr. Gallo Palmer MD Status: REG CLI Study: Shoulder min 2 Views Date of Exam: 04/30/25 Exam# [id number] Ordering Dr: Gallo Palmer MD PROCEDURE: SHOULDER MIN 2 VIEWS 04/30/2025 REASON FOR EXAM: PAIN TECHNIQUE: SHOULDER MIN 2 VIEWS COMPARISON: None RAD/Shoulder min 2 Views IMPRESSION: No acute fracture or dislocations. Mild degenerative changes of the right shoulder. No large joint effusion. No acute soft tissue abnormalities. No radiographic foreign body. Reading Location: [facility] CC: Dr. Gallo Palmer MD Polygraph Examiner: Signed Normal [facility] Sodium levelOrdered By: Ruth Palmer on 04-30-2025 Sodium [Moles/Vol] 132 mmol/L Low 133-145 [facility] Squamous epithelial cells de tection in urine sediment by light microscopyOrdered By: Gallo Palmer on 04-30-2025 Epithelial cells.squamous LM Ql (Urine sed) 0-5 SEEN /hpf 0-5 [facility] Testosterone, totalOrdered B y: Gallo Palmer on 04-30-2025 Testosterone [Mass/Vol] 273 ng/dL 264-916 [facility] Comment on above: Adult male reference interval is based on a population ofhealthy nonobese males (BMI <30) between 19 and 39 yearsold. Breann, et.al. JCEM 2017,102;6372-5757. PMID:[id number]. Total proteinOrdered By: Kuldeep Palmer on 04-30-2025 Protein [Mass/Vol] 6.9 g/dL 5.9-8.4 [facility] Triglycerides measurementOrd ered By: Gallo Palmer on 04-30-2025 Triglyceride [Mass/Vol] 182 mg/dL <199 [facility] Comment on above: The drugs N-Acetylcy steine and Metamizole may falsely depress this assay. Normal range: <150 mg/dLBorderline High: 150-199 mg/dLHigh: 200-499 mg/dLVery High: >500 mg/dL Urinalysis, Completeon 04-30 EPI,SQUAMOUS 0-5 SEEN Normal 0-5 [facility] Comment on above: Order Comment: COLLE CTOR TO SPECIFY Performed By: #### L 3100.5250, L400.0001, L500.4050, L3100.5310, L100.0100, L500.4100, L501.9910 #### [facility] [address] [place], [address] BACTERIA 0 SEEN Normal None Seen [facility] Comment on above: Order Comment: COLLE CTOR TO SPECIFY Performed By: #### L 3100.5450, L400.0001, L500.4050, L3100.5310, L100.0100, L500.4100, L501.9910 #### [facility] [address] [place], [address] Mucus Ql (Urine sed) [address] [facility] Comment on above: Order Comment: COLLE CTOR TO SPECIFY Performed By: #### L 3100.5450, L400.0001, L500.4050, L3100.5310, L100.0100, L500.4100, L501.9910 #### [facility] [address] [place], [address] RBC 0 SEEN Normal 0-5 [facility] Comment on above: Order Comment: COLLE CTOR TO SPECIFY Performed By: #### L 3100.5450, L400.0001, L500.4050, L3100.5310, L100.0100, L500.4100, L501.9910 #### [facility] [address] [place], [address] WBC 0 SEEN Normal 0-5 [facility] Comment on above: Order Comment: COLLE CTOR TO SPECIFY Performed By: #### L 3100.5450, L400.0001, L500.4050, L3100.5310, L100.0100, L500.4100, L501.9910 #### [facility] [address] [place], [address] Urine clarityOrdered By: Kuldeep Palmer on 04-30-2025 Clarity (U) Clear Clear [facility] Urine color determinationOrd ered By: Gallo Palmer on 04-30-2025 Color (U) Yellow Yellow [facility] Urine glucose detectionOrder ed By: Gallo Palmer on 04-30-2025 Glucose Ql (U) 1000 mg/dl High Normal [facility] Urine leukocyte esterase det ection by dipstickOrdered By: Gallo Palmer on 04-30-2025 Leukocyte esterase Test strip Ql (U) Negative Negative [facility] Urine pHOrdered By: Jens Palmer on 04-30-2025 pH (U) 5.0 [pH] 5.0 - 8.0 [facility] Urine sediment bacteria coun t by microscopy (number/high power field)Ordered By: Gallo Palmer on 04-30-2025 Bacteria LM.HPF (Urine sed) [#/Area] 0 /[HPF] None Seen [facility] Urine specific gravity measu rementOrdered By: Gallo Palmer on 04-30-2025 Specific gravity (U) [Rel density] 1.015 1.002-1.030 [facility] Urine urobilinogen measureme ntOrdered By: Gallo Palmer on 04-30-2025 Urobilinogen Ql (U) Normal mg/dl Normal [facility] White blood cell (WBC) count Ordered By: Gallo Palmer on 04-30-2025 WBC (Bld) [#/Vol] 6.0 10*3/uL 4.4-11.0 [facility] White blood cell countOrdere d By: Gallo Palmer on 04-30-2025 White blood cell count 0 SEEN /hpf 0-5 [facility] Internal Medicine Office Vis lyndsey 04-29-2025 Internal Medicine Office Visit [facility] [address] [place] [address] [address] [place], [place] [id number] OFFICE VISIT Date of Service: 04/29/25 MR#: [id number] Acct: [id number] Name: ALEXI BRICENO (LISS) Rep #: [id number] : 1960 Provider: Dr. Gallo zepeda MD Age/Sex: 65/M Location[facility] Status: Signed Intake Vital Signs 04/29/25 14:44 Height 5 ft 10 in Weight: 210 lb 2 oz BMI 30.1 BP 100/64 Blood Pressure Location Lt brachial Position Sitting Respiration 16 Pulse 92 Pulse Source Monitor Temp 97.6 F L Temp Source Temporal Pulse Oximetry (%) 96 Oxygen Delivery Method room air Intake Visit Reasons: EST NEW PT - [facility] SENT Chief Complaint: Establish Care. Concerns. [employer] Required: No Accompanied by: Is patient in pain?: No Allergies No Known Allergies Allergy (Verified 04/29/25 14:29) Medications ???Medication ???Instructions ???Recorded ???Confirmed ???Type esomeprazole magnesium 20 mg 20 mg PO QDAY 04/29/25 04/29/25 Hi story capsule,delayed release (Nexium 24HR) hydrocortisone 2.5 % topical cream 1 applic topical BID PRN rash #3 0 04/29/25 04/29/25 Rx grams metronidazole 0.75 % topical gel 1 applic topical BID #45 grams 04/29/25 Rx multivitamin 1 tab PO QDAY 04/29/25 04/29/25 Hi story PFSH Medical History (Updated 04/29/25 @ 17:[address] Gallo Palmer MD) Urinary frequency Facial dermatitis Lumbar radiculopathy Bilateral shoulder pain Screening for prostate cancer Erectile dysfunction Screening for cardiovascular condition Malaise and fatigue Esophageal ulcer Vasectomy evaluation GERD (gastroesophageal reflux disease) Kidney stone Surgical History (Updated 04/29/25 @ 14:36 by Jose Rouse) Esophageal dilatation H/O umbilical hernia repair Family History (Updated 04/29/25 @ 14:37 by Jose Rouse) Other Autoimmune disease Cancer Heart disease Social History (Updated 04/29/25 @ 14:38 by Jose Rouse) Smokeless tobacco user: chewing tobacco alcohol intake: current alcohol intake frequency: holidays/special occasions only Alcohol type: beer and hard liquor substance use type: does not use what type of physical activity do you participate in: none HPI HPI Chief Complaint: Establish Care. Concerns. Details: ALEXI BRICENO, is a 65-year-old male presenting to establish care. Also has concerns. He reports needing to urinate two to four times per night and experiences constant thirst, leading to increased fluid intake. These symptoms have been present for about a year, with a noticeable increase in frequency. He also reports increased urgency to urinate and poor urinary flow. No known history of BPH. Has not been seen/had any significant workup in many years. The patient also reports erectile dysfunction, with a lack of morning erections for several years. He has not attempted any treatments for this condition. Here with his . He reports numbness, burning, and pain in the toes, primarily affecting the big toes and occasionally the second and third toes. These symptoms are more pronounced in the evening and do not improve with specific interventions. No significant low back pain. Worked for many years standing on his feet in steel toed shoes. He reports bilateral shoulder pain. Sharp pain worse with movement. Did a lot of heavy lifting throughout his work years. Again, has not had imaging. He also reports bilateral facial rash which has been present for many years. Occasionally itchy. Has not tried anything to alleviate or help with this. Reports a family history of lupus. The patient has a family history of diabetes mellitus, with his mother and sister affected by the condition. He has been chewing tobacco since high school and retired recently, noting increased fatigue and slowing down since alf. Attestation: Documentation on this patient encounter was supported using ambient scribe technology/ voice AI technology. The patient consented to recording for the purpose of documenting the encounter. Provider reviewed content of the generated note prior to signature. ROS Const Constitutional: No body ache, chills, excessive sweating, fatigue, fever(s), frequent falls, headache(s), snoring, weakness, weight change, sleep problems or change in appetite Eyes Eyes: No blurry vision, change in vision, vision loss, dry eyes, eye pain or Light sensitivity ENT ENT: No abnormal hearing, ear or mastoid pain, tinnitus, dizziness/vertigo, nasal congestion, headache(s), neck pain or sore throat Resp Respiratory: No cough, excessive phlegm production, hemoptysis, shortness of breath, snoring or wheezing Cardio Cardiology: No chest pain at res (more content not included)... Normal [facility] Vital Signs Date Time Vital Sign Value Performing Clinician Faci lity 06-04-2025 10:20-0400 Body height 177.[address] Fabian Kraft MD Work Phone: [facility] 06-04-2025 10:20-0400 Body mass index (BMI) [Ratio] 29.5 kg/m2 Dr. Fabian Kraft MD Work Phone: 6(368)796-154011 [place] [address] 06-04-2025 10:20-0400 Body temperature 97.4 [degF] Dr. Fabian Kraft MD Work Phone: 8(513)960-305952 [place] [address] 06-04-2025 10:20-0400 Body weight 93.[address] Fabian Kraft MD Work Phone: 3(512)075-797911 [place] [address] 06-04-2025 10:20-0400 Diastolic blood pressure 62 mm[Hg] Dr. Fabian Kraft MD Work Phone: 4(396)380-709311 [place] [address] 06-04-2025 10:20-0400 Heart rate 94 /min Dr. Fabian Kraft MD Work Phone: 8(677)148-446611 [place] [address] 06-04-2025 10:20-0400 Respiratory rate 18 /min Dr. Fabian Kraft MD Work Phone: 3(040)921-436211 [place] [address] 06-04-2025 10:20-0400 SaO2% (BldA) [Mass fraction] 92 % Dr. Fabian Kraft MD Work Phone: 9(460)105-872911 [place] [address] 06-04-2025 10:20-0400 Systolic blood pressure 118 mm[Hg] Dr. Fabian Kraft MD Work Phone: 0(497)126-457611 [place] [address] 04-29-2025 14:44-0400 Body height 177.[address] Fabian Kraft MD Work Phone: 0(393)310-236411 [place] [address] 04-29-2025 14:44-0400 Body mass index (BMI) [Ratio] 30.1 kg/m2 Dr. Fabian Kraft MD Work Phone: [facility] 04-29-2025 14:44-0400 Body temperature 97.6 [degF] Dr. Fabian Kraft MD Work Phone: [facility] 04-29-2025 14:44-0400 Body weight 95.[address] Fabian Kraft MD Work Phone: [facility] 04-29-2025 14:44-0400 Diastolic blood pressure 64 mm[Hg] Dr. Fabian Kraft MD Work Phone: [facility] 04-29-2025 14:44-0400 Heart rate 92 /min Dr. Fabian Kraft MD Work Phone: [phone](712)580-535611 [place] [address] 04-29-2025 14:44-0400 Respiratory rate 16 /min Dr. Fabian Kraft MD Work Phone: [facility] 04-29-2025 14:44-0400 SaO2% (BldA) [Mass fraction] 96 % Dr. Fabian Kraft MD Work Phone: [facility] 04-29-2025 14:44-0400 Systolic blood pressure 100 mm[Hg] Dr. Fabian Kraft MD Work Phone: [facility] Encounters Encounter Date Encounter Type Care Provider Facility Start: 06-04-2025 End: 06-04-[address] Gallo Palmer MD -[facility] Work Phone: Start: 06-04-2025 End: 06-04-[address] Fabian Kraft MD Work Phone: -[facility] Start: 05-28-2025 ambulatory Gallo Kendall ty:[facility] Start: 05-28-[address] Haritha Palmer MD -Physical Therapy Work Phone: Start: 05-06-2025 End: 05-06-2025 Patient encounter procedure BIM NURSE -[facility] Work Phone: Start: 05-06-2025 End: 05-06-[address] Fabian Kraft MD Work Phone: -[facility] Start: 05-04-2025 Non-patient / Non-visit Dr. Evelina Palmer MD -[facility] Start: 05-04-[address] Fabian Yang MD Work Phone: -[facility] Start: 04-30-2025 End: 04-30-[address] Fabian Kraft MD Work Phone: -[facility] Start: 04-30-2025 End: 04-30-[address] Gallo Palmer MD -[facility] Work Phone: Start: 04-29-2025 End: 04-29-[address] Gallo Palmer MD -[facility] Work Phone: Start: 04-29-2025 End: 04-30-[address] Fabian Kraft MD Work Phone: -[facility] Procedures Date Procedure Procedure Detail Performing Clinician Start: 04-30-[address] Cleveland Kraft MD Work Phone: Comment on above: Performed at: [address] [id number] Director: Kp Gan PhD, Phone: [phone] Start: 04-30-2025 Antibody to centrome re measurement Dr. Fabian Kraft MD Work Phone: Comment on above: Test not performed Start: 04-30-2025 Antibody to extracta ble nuclear antigen measurement Dr. Fabian Kraft MD Work Phone: Comment on above: Test not performed Start: 04-30-2025 Antibody to GUANACO-[address] Fabian Kraft MD Work Phone: Comment on above: Test not performed Start: 04-30-2025 Antibody to lupus La protein measurement Dr. Fabian Kraft MD Work Phone: Comment on above: Test not performed Start: 04-30-2025 Antibody to SS-A measurement Dr. Fabian Kraft MD Work Phone: Comment on above: Test not performed Start: 04-30-[address] Fabian Kraft MD Work Phone: Comment on above: Test not performed Start: 04-30-2025 Prostate specific an tigen measurement Dr. Fabian Kraft MD Work Phone: Comment on above: This test was perfor med using the [employer] tPSA method. Measured values of a patient sample can vary depending on the testing procedure used. PSA values determined on patient samples by different testing procedures cannot be used interchangeably. If there is a change in PSA assays while monitoring therapy, sequential testing should be performed to confirm baseline values. Start: 04-30-2025 LIVEST[employer] BREEDER antibody measurement Dr[address] Fabian Kraft MD Work Phone: Comment on above: Test not performed Start: 04-30-2025 Urnls dip stick/tabl et reagent auto microscopy Dr. Fabian Kraft MD Work Phone: Start: 04-30-2025 End: 04-30-2025 Plain X-ray of shoulder Dr. Fabian mobley MD Work Phone: Start: 04-30-2025 X-ray of lumbosacral spine Dr. Fabian Kraft MD Work Phone: Plan of Treatment Date Care Activity Detail Author Start: 04-30-2025 Testosterone measurement [facility] CBC W Auto Different ial panel - Blood [facility] metabo lic 1999 panel - Serum or Plasma [facility] metabo lic 1999 panel - Serum or Plasma [facility] Cytoplasmic ANCA Screen [facility] Hemoglobin A1c/Hemog lobin.total in Blood [facility] Lipid 1996 panel - S halina or Plasma [facility] Prostate specific an tigen measurement [facility] Serum testosterone measurement [facility] Testosterone Free [M ass/volume] in Serum or Plasma [facility] Testosterone measurement [facility] Testosterone measurement [facility] Urine microalbumin/c reatinine ratio measurement [facility] XR Shoulder GE 2 Views [facility] XR Spine Lumbar and Sacrum GE 4 Views [facility] Payers Date Payer Category Payer Self-pay 2024 Unknown [id number] Unknown [id number] [id number] [id number] Unknown [id number] 2.16.8 [id number] Unknown [id number] 2.16.8 [id number] Unknown [id number] 2.16.8 [id number] Unknown [id number] 2.16.8 [id number] Unknown [id number] 2.16.8 [id number] Social History Date Type Detail Facility Tobacco smoking stat [facility] Unknown if ever smoked [place] [employer] Work Phone: Start: 1960 Sex Assigned At Male [facility] Medical Equipment Procedure Code Equipment Code Equipment Origin al Text Equipment Identifier Dates Blood Sugar Diagnostic (Freestyle Lite Strips) strip Start: 05-04-2025 Lancets (Freesty le Lancets) 28 gauge misc Start: 05-04-2025 Blood Sugar Diagnostic (Freestyle Lite Strips) strip Start: 05-04-2025 Lancets (Freesty le Lancets) 28 gauge misc Start: 05-04-2025 Blood Sugar Diagnostic (Freestyle Lite Strips) strip Start: 05-04-2025 Lancets (Freesty le Lancets) 28 gauge misc Start: 05-04-2025 Blood Sugar Diagnostic (Freestyle Lite Strips) strip Start: 05-04-2025 Lancets (Freesty le Lancets) 28 gauge misc Start: 05-04-2025 Radiology Diagnostic study note 05-01-2025 Note Date & Type Note Facility 05-01-2025 Radiology Diagnostic study note [facility] Imaging Services [address] [place] [address] Shoulder min 2 Views MR#: [id number] Acct: [id number] Name: ALEXI BRICENO Rep #: [id number] : 1960 M 65 From: Sapna Buenrostro MD PCP: Dr. Gallo Palmer MD Status: R EG CLI Study:Shoulder min 2 Views Date of Exam: 04/30/25 Exam# [id number] Ordering Dr: Samantha Palmer MD EXAM: XR Left Shoulder Complete, 2 or More Views CLINICAL INDICATION: BILATERAL SHOULDER PAIN TECHNIQUE: Two or more views of the left shoulder. COMPARISON: No relevant prior studies available. FINDINGS: BONES/JOINTS: Mild degenerative changes of the acromioclavicular and glenohumeral joints. No acute fracture. No dislocation. SOFT TISSUES: Unremarkable. RAD/Shoulder min 2 Views IMPRESSION: Degenerative changes as above. Reading Location: [facility] CC: Dr. Gallo Palmer MD ~ Polygraph Examiner: Signed [facility] Radiology Diagnostic study note 05-01-2025 Note Date & Type Note Facility 05-01-2025 Radiology Diagnostic study note [facility] Imaging Services [address] [place], [place] [address] L/S Spine Min 4 Views MR#: [id number] Acct: [id number] Name: ALEXI BRICENO Rep #: [id number] : 1960 M 65 From: Sapna Buenrostro MD PCP: Dr. Gallo Palmer MD Status: R EG CLI Study:L/S Spine Min 4 Views Date of Exam: 04/30/25 Exam# [id number] Ordering Dr: Samantha Palmer MD EXAM: XR Lumbosacral Spine, 4 or 5 Views CLINICAL INDICATION: NEUROPATHY TECHNIQUE: Frontal, lateral and bilateral oblique views of the lumbar spine. COMPARISON: No relevant prior studies available. FINDINGS: VERTEBRAE: Mild endplate degenerative changes of the visualized spine. Mild facet arthropathy of L3-S1. No acute fracture. Normal alignment. SACRUM/COCCYX: Unremarkable as visualized. No acute fracture. DISC SPACES: No acute findings. No significant narrowing. SOFT TISSUES: Unremarkable. RAD/L/S Spine Min 4 Views IMPRESSION: Degenerative changes as above. Reading Location: [id number] CC: Dr. Gallo Palmer MD ~ Polygraph Examiner: Signed [facility] Radiology Diagnostic study note 04-30-2025 Note Date & Type Note Facility 04-30-2025 Radiology Diagnostic study note [facility] Imaging Services [address] [place] [id number] Shoulder min 2 Views MR#: [id number] Acct: [id number] Name: ALEXI BRICENO Rep #: [id number] : 1960 65 From: Carisa Sommers MD PCP: Dr. Gallo Palmer MD Status: R EG CLI Study:Shoulder min 2 Views Date of Exam: 04/30/25 Exam# [id number] Ordering Dr: Samantha Palmer MD PROCEDURE: SHOULDER MIN 2 VIEWS 04/30/2025 REASON FOR EXAM: PAIN TECHNIQUE: SHOULDER MIN 2 VIEWS COMPARISON: None RAD/Shoulder min 2 Views IMPRESSION: No acute fracture or dislocations. Mild degenerative changes of the right shoulder. No large joint effusion. No acute soft tissue abnormalities. No radiographic foreign body. Reading Location: [id number] CC: Dr. Gallo Palmer MD ~ Polygraph Examiner: Signed [facility] Evaluation note 04-29-2025 Note Date & Type Note Facility 04-29-2025 Evaluation note Diagnosis Onset Date Resolution Facial dermatitis acute April 292024 2:27pm Lumbar radiculopathy acute April 29, 2025 2:27pm Bilateral shoulder pain chronic J penny 2024 2:27pm Erectile dysfunction chronic April 29, 2025 2:27pm Urinary frequency chronic April 292024 2:27pm [facility] Work Phone: Evaluation note Note Date & Type Note Facility Evaluation note No assessment information availa tahira [facility] Work Phone: Hospital Discharge instructions Note Date & Type Note Facility Hospital Discharge instructions Ambulatory OrdersNutrition Referral Location: None Selected [facility] Work Phone: Reason for referral (narrative) Note Date & Type Note Facility Reason for referral (narrative) No reason for referral information available [facility] Work Phone: Chief Complaint and Reason for Visit Chief Complaint Admit Date EST NEW PT - [facility] SENT April 29, 2025 2 :27pm Chief Complaint Admit Date EST NEW PT - [facility] SENT April 29, 2025 2 :27pm Bilateral Shoulder Pain Neuropathy April 30, 2025 9:39am Referral Order May 04, 2025 1:38 pm Reason for Visit Admit Date Facial dermatitis April 29, 2025 2:27 pm Lumbar radiculopathy April 29, 2025 2:2 7pm Bilateral shoulder pain April 29, 2025 2:27pm Erectile dysfunction April 29, 2025 2:2 7pm Urinary frequency April 29, 2025 2:27 pm Chief Complaint Admit Date EST NEW PT - [facility] SENT April 29, 2025 2 :27pm Bilateral Shoulder Pain Neuropathy April 30, 2025 9:39am Referral Order May 04, 2025 1:38 pm Glucose Meter Check May 06, 2025 8:49 am Chief Complaint Admit Date EST NEW PT - [facility]WK SENT April 29, 2025 2 :27pm Bilateral Shoulder Pain Neuropathy April 30, 2025 9:39am Referral Order May 04, 2025 1:38 pm Glucose Meter Check May 06, 2025 8:49 am KOBI SHLD PN/ RX HERE May 28, 2025 8 :30am 1 M FU June 04, 2025 10 :12am Family History No Family History Records Found Relationship Condition Age at Onset Recorded Date/T david Not Specified Autoimmune disease Unknown Cardiac disease Unknown Malignant neoplasm Unknown Summary Purpose Advance Directives No Advanced Directives Records Found Additional Source Comments Care Teams (unrecognized sec tion and content) Team Status: Active Member Role/Relationship Status Dates Dr. Fabian Kraft MD Family Provider Active Dr. Fabian Kraft MD Primary Care Provider Active Team Status: Inactive Member Role/Relationship Status Dates Dr. Fabian Kraft MD Primary Care Provider Active Start: April 29, 2025 End: April 29, 2025 Dr. Fabian Kraft MD Referring Provider Active Start: April 29, 2025 End: April 29, 2025 Dr. Gallo Palmer MD Attending Provider Active Start: April 29, 2025 End: April 29, 2025 Team Status: Active Member Role/Relationship Status Dates Dr. Fabian Kraft MD Family Provider Active Dr. Gallo Palmer MD Primary Care Provider Active Team Status: Active Member Role/Relationship Status Dates Dr. Gallo Palmer MD Primary Care Provider Active Start: April 30, 2025 Dr. Gallo Palmer MD Attending Provider Active Start: April 30, 2025 Dr. Gallo Palmer MD Referring Provider Active Start: April 30, 2025 Team Status: Active Member Role/Relationship Status Dates Dr. Gallo Palmer MD Primary Care Provider Active Start: May 04, 2025 Dr. Gallo Palmer MD Attending Provider Active Start: May 04, 2025 Team Status: Active Member Role/Relationship Status Dates Dr. Gallo Palmer MD Primary Care Provider Active Team Status: Inactive Member Role/Relationship Status Dates Dr. Gallo Palmer MD Primary Care Provider Active Start: May 06, 2025 End: May 06, 2025 Dr. Gallo Palmer MD Referring Provider Active Start: May 06, 2025 End: May 06, 2025 BIM NURSE Attending Provider Active Start: 2024 End: May 06, 2025 Team Status: Inactive Member Role/Relationship Status Dates Dr. Gallo Palmer MD Primary Care Provider Active Start: April 30, 2025 End: April 30, 2025 Dr. Gallo Palmer MD Attending Provider Active Start: April 30, 2025 End: April 30, 2025 Dr. Gallo Palmer MD Referring Provider Active Start: April 30, 2025 End: April 30, 2025 Team Status: Inactive Member Role/Relationship Status Dates Dr. Gallo Palmer MD Primary Care Provider Active Start: May 06, 2025 End: May 06, 2025 Dr. Gallo Palmer MD Referring Provider Active Start: May 06, 2025 End: May 06, 2025 ESTEFANIA Cota Attending Provider Active Start: May 06, 2025 End: May 06, 2025 Team Status: Active Member Role/Relationship Status Dates Dr. Gallo Palmer MD Primary Care Provider Active Start: May 28, 2025 Dr. Gallo Palmer MD Attending Provider Active Start: May 28, 2025 Dr. Gallo Palmer MD Referring Provider Active Start: May 28, 2025 Team Status: Inactive Member Role/Relationship Status Dates Dr. Gallo Palmer MD Primary Care Provider Active Start: June 04, 2025 End: June 04, 2025 Dr. Gallo Palmer MD Attending Provider Active Start: June 04, 2025 End: June 04, 2025 Dr. Gallo Palmer MD Referring Provider Active Start: June 04, 2025 End: June 04, 2025 Goals (unrecognized section and content) Goals may be documented in a n alternate sectionGoals may be documented in an alternate sectionGoals may be documented in an alternate sectionGoals may be documented in an alternate sectionGoals may be documented in an alternate section (unrecognized sect ion and content) No Status Records Found INFORMATION SOURCE (unrecogn ized section and content) DATE CREATED AUTHOR 06/06/2025 [facility] FOR RECORDS PERTAINING TO PATIENTS WHO ARE OR HAVE BEEN ENROLLED IN A CHEMICAL DEPENDENCY/SUBSTANCEABUSE PROGRAM, SOME INFORMATION MAY BE OMITTED. This clinical summary was aggregated from multiple sources. Caution should be exercised in using it in the provision of clinical care. This summary normalizes information from multiple sources, and as a consequence, information in this document may materially change the coding, format and clinical context of patient data. In addition, data may be omitted in some cases. CLINICAL DECISIONS SHOULD BE BASED ON THE PRIMARY CLINICAL RECORDS. [employer] [facility]. provides no warranty or guarantee of the accuracy or completeness of information in this document.
--- OUTSIDE RECORDS SUMMARY | 2025-07-28 12:33 | XMS RPT_ITS | CCD ---
Author Organization [facility] Care Team Providers Care Para Educator Name Role Phone Swapnil CRAWFORD, Dr. Peralta Primary Care Provider Swapnil CRAWFORD, Dr. Peralta Referring Provider Spencer CRAWFORD, Dr. Holder Attending Provider [phone] Spencer CRAWFORD, Dr. Holder Primary Care Provider Spencer CRAWFORD, Dr. Holdre Referring Provider [phone] NURSE, BIM Attending Provider Unavailable Shinr YARN DRY ROOM WORKER-CMoni Attending Provider [phone] Oleghe, Efewongbe Primary Care [...] Reference Range Facility Internal Medicine Office Vis [facility] 06-04-2025 Internal Medicine Office Visit [facility] [address] [place], [place] [address] OFFICE VISIT Date of Service: 06/04/25 MR#: [id number] Acct: [id number] Name: ALEXI BRICENO Rep #: [id number] : 1960 Provider: Dr. Gallo zepeda MD Age/Sex: 65/M Location: [facility] Status: Signed Intake Vital Signs 04/29/25 14:44 [...] mg 20 mg PO QDAY 04/29/25 04/29/25 Fieldbook capsule,delayed release (Nexium 24HR) hydrocortisone 2.5 % topical cream 1 applic topical BID PRN rash #3 0 04/29/25 06/04/25 Rx grams metronidazole 0.75 % topical gel 1 applic topical BID #45 grams 06/04/25 Rx multivitamin 1 tab PO QDAY 04/29/25 06/04/25 HemoShear story blood sugar diagnostic (FreeStyle #200 ea [...] to correlate with low blood sugar readings [facility] Medical History (Updated 06/04/25 @ 11:00 by [...] or Lig (more content not included)... Normal [facility] Inital Evaluation (1) - PTon 05-07-2025 Inital Evaluation (1) - PT [facility] Physical Therapy [facility] [address] [place] [address] / REHABILITATION SERVICES INITIAL EVALUATION MR#: [id number] Acct: [id number] Name: ALEXI BRICENO Rep #: [id number] : 1960 65 From: Dunia AVERY Referring Dr.: Dr. Gallo Palmer MD Status: REG RCR Insurance: [employer] SELF PAY INSURANCE Patient's Visit Information Visit [...] to be FAXED BACK to us at [phone] for Medicare purposes. For Medicare only, by signing this I certify the plan of care. Please let me know if there are questions or concerns regarding this plan of care. Physician Signature: Date : 05/07/25 1353 (more content not included)... Normal [facility] Office Visit Reporton 2024 Office Visit Report [facility] [address] [place] [address] OFFICE VISIT Date of Service: 05/06/25 MR#: [id number] Acct: [id number] Patient: ALEXI BRICENO Rep #: [id number] : 1960 Provider: SALVADOR KOHLER Age/Sex: 65/M Location: [facility] Status: Signed Intake Vital Signs 04/29/25 14:44 [...] big on the box. Verbal given for [id number] pen needles 1box no refills. Printed pt ada diet and BG log pt and verbalized undertsanding and thanked me. Pt has f/u in 1 month and has appointment on 06/03 w/ [facility] nutrion services. Pt's bs w/ coffee and cream was 291. Educated pt on sign of hypo and hyperglycemia . Pt and already versed on how to give lantus due to wifes migrane med. 05/06/25 1511 Date Moni Stearns YARN DRY ROOM WORKER-C Cosigner Signature: Date (if applicable) CC: Normal [facility] Testosterone, Total / Freeon 05-05-2025 TESTOSTER,FREE 7.78 ng/dL Normal 5.00-21.00 [facility] Comment on above: Order Comment: N Performed By: #### L 3100.5450, L400.0001, L500.4050, L3100.5310, L100.0100, L500.4100, L501.9910 ####[facility] [address] [place], [address] TESTOSTER,TOTAL 273 ng/dL Normal 264-916 [facility] Comment on above: Order Comment: N Result Comment: Adul t male reference interval is based on a population of healthy nonobese males (BMI <30) between 19 and 39 years old. Breann et.al. JCEM 2017,102;7867-2937. PMID: [id number]. Performed By: #### L 3100.5450, L400.0001, L500.4050, L3100.5310, L100.0100, L500.4100, L501.9910 ####[facility] [address] [place], [place], [address] TESTOSTERONE,%F 2.85 Normal 1.50-4.20 [facility] Comment on above: Order Comment: N Result Comment: Perf ormed at: [facility] [address] [id number] Behaviour Support Teacher: Kp Gan PhD, Phone: [phone] Performed at: - [facility] [id number] Behaviour Support Teacher: Karel Lomax MD, Phone: [phone] Performed By: #### L 3100.5450, L400.0001, L500.4050, L3100.5310, L100.0100, L500.4100, L501.9910 ####[facility] [address] [place], [place], [address] AMANDA w/ Reflex Mult Confirmon 05-04-2025 ANTI-DNA (DS)AB TNP Normal [facility] Comment on above: Performed By: #### L 3100.5450, L400.0001, L500.4050, L3100.5310, L100.0100, L500.4100, L501.9910 #### [facility] [address] [place], [place], [id number] ANTI-SS-A TNP Normal [facility] Comment on above: Performed By: #### L 3100.5450, L400.0001, L500.4050, L3100.5310, L100.0100, L500.4100, L501.9910 #### [facility] [address] [place], [place], [id number] ANTI-SS-B TNP Normal [facility] Comment on above: Performed By: #### L 3100.5450, L400.0001, L500.4050, L3100.5310, L100.0100, L500.4100, L501.9910 #### [facility] [address] [place], [address] Hemoglobin A1con 05-04-2025 HbA1c (Bld) [Mass fraction] 13.8 % High <=5.6 [facility] Comment on above: Result Comment: Norm al < 5.7 % Prediabetic 5.7 - 6.4 % Diabetic >or= 6.5 % Please note range changes. Performed By: #### L 501.9985 #### [facility] [address] [place], [place], [address] Hemoglobin A1c percentageOrd ered By: Gallo Palmer on 05-03-2025 HbA1c (Bld) [Mass fraction] 13.8 % High <5.7 [facility] Comment on above: Normal < 5.7 % Predi abetic 5.7 - 6.4 % Diabetic >or= 6.5 % Please note range changes. Absolute lymphocyte countOrd ered By: Gallo Palmre on 04-30-2025 Lymphocytes Auto (Unsp spec) [#/Vol] 1.98 10*3/uL 0.83-4.51 [facility] Absolute neutrophil countOrd ered By: Gallo Palmer on 04-30-2025 Neutrophils (Bld) [#/Vol] 3.2 10*3/uL 2.0-7.7 [facility] Anion gap in Serum or Plasma Ordered By: Gallo Palmer on 04-30-2025 Anion gap [Moles/Vol] 15 mmol/L 5-15 [facility] Automated lymphocyte count a s percentage of total leukocytesOrdered By: Gallo Palmer on 04-30-2025 Lymphocytes/100 WBC Auto (Unsp spec) 33.2 % 19-41 [facility] BUN/creatinine ratioOrdered By: Gallo Palmer on 04-30-2025 Urea nitrogen/Creatinine [Mass ratio] 9.0 mg/mg Low 10-20 [facility] Basophil percentageOrdered B y: Gallo Palmer on 04-30-2025 Basophils/100 WBC (Bld) 1.0 % 0-1 [facility] Bilirubin Test strip Ql (U)O rdered By: Gallo Palmer on 04-30-2025 Bilirubin Ql (U) Negative Negative [facility] Bilirubin, totalOrdered By: Gallo Palmer on 04-30-2025 Bilirubin [Mass/Vol] 0.58 mg/dL 0.00-1.30 [facility] CBC W/Diff, Automatedon 04-07 Absolute Lymph 1.98 X10 3/uL Normal 0.83-4.51 [facility] Comment on above: Performed By: #### L 3100.5450, L400.0001, L500.4050, L3100.5310, L100.0100, L500.4100, L501.9910 #### [facility] [address] [place], [address] Absolute Neut 3.2 X10 3/uL Normal 2.0-7.7 [facility] Comment on above: Performed By: #### L 3100.5450, L400.0001, L500.4050, L3100.5310, L100.0100, L500.4100, L501.9910 #### [facility] [address] [place], [address] Basophils/100 WBC (Bld) 1.0 % Normal 0-1 [facility] Comment on above: Performed By: #### L 3100.5450, L400.0001, L500.4050, L3100.5310, L100.0100, L500.4100, L501.9910 #### [facility] [address] [place], [address] Eosinophils/100 WBC (Bld) 5.5 % High 0-5 [facility] Comment on above: Performed By: #### L 3100.5450, L400.0001, L500.4050, L3100.5310, L100.0100, L500.4100, L501.9910 #### [facility] [address] [place], [address] Erythrocyte distribution width (RBC) [Ratio] 12.4 % Normal 11.6-14.6 [facility] Comment on above: Performed By: #### L 3100.5450, L400.0001, L500.4050, L3100.5310, L100.0100, L500.4100, L501.9910 #### [facility] [address] [place], [address] Hematocrit (Bld) [Volume fraction] 44.2 % Normal 40-54 [facility] Comment on above: Performed By: #### L 3100.5450, L400.0001, L500.4050, L3100.5310, L100.0100, L500.4100, L501.9910 #### [facility] [address] [facility] [place], [address] Hemoglobin (Bld) [Mass/Vol] 14.8 g/dL Normal 13.0-16.5 [facility] Comment on above: Performed By: #### L 3100.5450, L400.0001, L500.4050, L3100.5310, L100.0100, L500.4100, L501.9910 #### [facility] [address] [place], [address] IG% 0.300 Normal 0.0-0.9 [facility] Comment on above: Result Comment: IG% - Immature Granulocytes (promyelocytes, myelocytes and metamyelocytes) > 1% indicates that a LEFT SHIFT is Present. Performed By: #### L 3100.5450, L400.0001, L500.4050, L3100.5310, L100.0100, L500.4100, L501.9910 #### [facility] [address] [employer] [facility] [place], [address] Lymphocytes/100 WBC (Bld) 33.2 % Normal 19-41 [facility] Comment on above: Performed By: #### L 3100.5450, L400.0001, L500.4050, L3100.5310, L100.0100, L500.4100, L501.9910 #### [facility] [address] [place], [address] MCH (RBC) [Entitic mass] 30.1 pg Normal 27.0-32.0 [facility] Comment on above: Performed By: #### L 3100.5450, L400.0001, L500.4050, L3100.5310, L100.0100, L500.4100, L501.9910 #### [facility] [address] [place], [address] MCHC (RBC) [Mass/Vol] 33.5 g/dL Normal 32-36 [facility] Comment on above: Performed By: #### L 3100.5450, L400.0001, L500.4050, L3100.5310, L100.0100, L500.4100, L501.9910 #### [facility] [address] [place], [address] MCV (RBC) [Entitic vol] 89.8 fL Normal 80-94 [facility] Comment on above: Performed By: #### L 3100.5450, L400.0001, L500.4050, L3100.5310, L100.0100, L500.4100, L501.9910 #### [facility] [address] [place], [address] Monocytes/100 WBC (Bld) 5.9 % Normal 0-10 [facility] Comment on above: Performed By: #### L 3100.5450, L400.0001, L500.4050, L3100.5310, L100.0100, L500.4100, L501.9910 #### [facility] [address] [place], [address] Neutrophils/100 WBC (Bld) 54.1 % Normal 47-70 [facility] Comment on above: Performed By: #### L 3100.5450, L400.0001, L500.4050, L3100.5310, L100.0100, L500.4100, L501.9910 #### [facility] [address] [place], [address] Nucleated RBC (Bld) [#/Vol] 0 10*3/uL Normal 0-5 [facility] Comment on above: Performed By: #### L 3100.5450, L400.0001, L500.4050, L3100.5310, L100.0100, L500.4100, L501.9910 #### [facility] [address] [place], [address] Platelet mean volume (Bld) [Entitic vol] 10.7 fL Normal 6.2-12.0 [facility] Comment on above: Performed By: #### L 3100.5450, L400.0001, L500.4050, L3100.5310, L100.0100, L500.4100, L501.9910 #### [facility] [address] [place], [address] Platelets (Bld) [#/Vol] 190 10*3/uL Normal 150-450 [facility] Comment on above: Performed By: #### L 3100.5450, L400.0001, L500.4050, L3100.5310, L100.0100, L500.4100, L501.9910 #### [facility] [address] [place], [address] RBC (Bld) [#/Vol] 4.92 10*6/uL Normal 4.6-6.2 [facility] Comment on above: Performed By: #### L 3100.5450, L400.0001, L500.4050, L3100.5310, L100.0100, L500.4100, L501.9910 #### [facility] [address] [place], [address] RDW SD 40.7 fl Normal 35.1-43.9 [facility] Comment on above: Performed By: #### L 3100.5450, L400.0001, L500.4050, L3100.5310, L100.0100, L500.4100, L501.9910 #### [facility] [address] [place], [address] WBC (Bld) [#/Vol] 6.0 10*3/uL Normal 4.4-11.0 [facility] Comment on above: Performed By: #### L 3100.5450, L400.0001, L500.4050, L3100.5310, L100.0100, L500.4100, L501.9910 #### [facility] [address] [place], [place], [address] Calculated very low density lipoprotein (VLDL) cholesterol measurementOrdered By: Gallo Palmer on 04-30-2025 Calculated very low density lipoprotein (VLDL) cholesterol measurement 36 mg/dL 5-40 [facility] Carbon dioxide, total [Moles /volume] in Central venous bloodOrdered By: Gallo Palmer on 04-30-2025 CO2 [Moles/Vol] 19.3 mmol/L Low 21.0-32.0 [facility] Chloride assayOrdered By: Evelina Palmer on 04-30-2025 Chloride [Moles/Vol] 98 mmol/L 98-108 [facility] Comprehensive Metabolic Prof ilon 04-30-2025 Albumin [Mass/Vol] 4.1 g/dL Normal 3.4-4.8 [facility] Comment on above: Performed By: #### L 3100.5450, L400.0001, L500.4050, L3100.5310, L100.0100, L500.4100, L501.9910 ####[facility] [address] [place], [address] Albumin/Globulin [Mass ratio] 1.5 {ratio} Normal 0.9-2.4 [facility] Comment on above: Performed By: #### L 3100.5450, L400.0001, L500.4050, L3100.5310, L100.0100, L500.4100, L501.9910 ####[facility] [address] [place], [address] ALK PHOS 105 U/L Normal 40-129 [facility] Comment on above: Performed By: #### L 3100.5450, L400.0001, L500.4050, L3100.5310, L100.0100, L500.4100, L501.9910 ####[facility] [address] [place], [address] ALT [Catalytic activity/Vol] 37 U/L Normal <=46 [facility] Comment on above: Performed By: #### L 3100.5450, L400.0001, L500.4050, L3100.5310, L100.0100, L500.4100, L501.9910 ####[facility] [address] [place], [address] AST [Catalytic activity/Vol] 25 U/L Normal <=37 [facility] Comment on above: Result Comment: Hemo lysis present, Results??could be affected. ?? Performed By: #### L 3100.5450, L400.0001, L500.4050, L3100.5310, L100.0100, L500.4100, L501.9910 ####[facility] [address] [place], [address] Bilirubin [Mass/Vol] 0.58 mg/dL Normal 0.00-1.30 [facility] Comment on above: Performed By: #### L 3100.5450, L400.0001, L500.4050, L3100.5310, L100.0100, L500.4100, L501.9910 ####[facility] [address] [place], [address] BUN/CRE 9.0 RATIO Low 10-20 [facility] Comment on above: Performed By: #### L 3100.5450, L400.0001, L500.4050, L3100.5310, L100.0100, L500.4100, L501.9910 ####[facility] [address] [place], [address] Calcium [Mass/Vol] 9.2 mg/dL Normal 7.6-11.0 [facility] Comment on above: Performed By: #### L 3100.5450, L400.0001, L500.4050, L3100.5310, L100.0100, L500.4100, L501.9910 ####[facility] [address] [place], [address] Chloride [Moles/Vol] 98 mmol/L Normal 98-108 [facility] Comment on above: Performed By: #### L 3100.5450, L400.0001, L500.4050, L3100.5310, L100.0100, L500.4100, L501.9910 ####[facility] [address] [place], [address] CO2 [Moles/Vol] 19.3 mmol/L Low 21.0-32.0 [facility] Comment on above: Performed By: #### L 3100.5450, L400.0001, L500.4050, L3100.5310, L100.0100, L500.4100, L501.9910 ####[facility] [address] [place], [address] Creatinine [Mass/Vol] 0.98 mg/dL Normal 0.70-1.20 [facility] Comment on above: Performed By: #### L 3100.5450, L400.0001, L500.4050, L3100.5310, L100.0100, L500.4100, L501.9910 ####[facility] [address] [place], [address] GAP 15 Normal 5-15 [facility] Comment on above: Performed By: #### L 3100.5450, L400.0001, L500.4050, L3100.5310, L100.0100, L500.4100, L501.9910 ####[facility] [address] [place], [place], [address] GFR/1.73 sq M.predicted among non-blacks MDRD (S/P/Bld) [Vol rate/Area] 86 mL/min/{1.73_m2} Normal >60 [facility] Comment on above: Result Comment: mL/m in/1.73m2 CKD-EPI Creatinine Equation (2020) Performed By: #### L 3100.5450, L400.0001, L500.4050, L3100.5310, L100.0100, L500.4100, L501.9910 ####[facility] [address] [place], [place], [address] Globulin (S) [Mass/Vol] 2.8 g/dL Normal 2.2-4.2 [facility] Comment on above: Performed By: #### L 3100.5450, L400.0001, L500.4050, L3100.5310, L100.0100, L500.4100, L501.9910 ####[facility] [address] [place], [place], [address] Glucose [Mass/Vol] 414 mg/dL High 70-99 [facility] Comment on above: Performed By: #### L 3100.5450, L400.0001, L500.4050, L3100.5310, L100.0100, L500.4100, L501.9910 ####[facility] [address] [place], [address] Potassium [Moles/Vol] 4.1 mmol/L Normal 3.3-5.1 [facility] Comment on above: Result Comment: Hemo lysis present, Results??could be affected. ?? Performed By: #### L 3100.5450, L400.0001, L500.4050, L3100.5310, L100.0100, L500.4100, L501.9910 ####[facility] [address] [place], [address] Sodium [Moles/Vol] 132 mmol/L Low 133-145 [facility] Comment on above: Performed By: #### L 3100.5450, L400.0001, L500.4050, L3100.5310, L100.0100, L500.4100, L501.9910 ####[facility] [address] [place], [address] T PROT 6.9 g/dL Normal 5.9-8.4 [facility] Comment on above: Performed By: #### L 3100.5450, L400.0001, L500.4050, L3100.5310, L100.0100, L500.4100, L501.9910 ####[facility] [address] [place], [place], [phone] Urea nitrogen [Mass/Vol] 9 mg/dL Normal 4-19 [facility] Comment on above: Performed By: #### L 3100.5450, L400.0001, L500.4050, L3100.5310, L100.0100, L500.4100, L501.9910 ####[facility] [address] [place], [address] Eosinophil percentageOrdered By: Gallo Palmer on 04-30-2025 Eosinophils/100 WBC (Bld) 5.5 % High 0-5 [facility] Erythrocyte distribution wid th ratioOrdered By: Gallo Palmer on 04-30-2025 Erythrocyte distribution width (RBC) [Ratio] 12.4 % 11.6-14.6 [facility] Erythrocyte distribution wid th standard deviationOrdered By: Gallo Palmer on 04-30-2025 Erythrocyte distribution width (RBC) [Ratio] 40.7 fl 35.1-43.9 [facility] Free testosterone percentage Ordered By: Gallo Palmer on 04-30-2025 Testosterone Free/Testosterone.total [Mass fraction] 2.85 % 1.50-4.20 [facility] Comment on above: Performed at: [facility] [address] [id number] Director: Kp Gan PhD, Phone: [phone] at: [facility] [id number] Director: Karel Lomax MD, Phone: [phone] Glomerular filtration rate ( GFR) estimation/1.73 sq m using serum, plasma, or whole bOrdered By: Gallo Palmer on 04-30-2025 GFR/1.73 sq M.predicted among non-blacks MDRD (S/P/Bld) [Vol rate/Area] 86 mL/min/{1.73_m2} >60 [facility] Comment on above: mL/min/1.73m2 CKD-EP I Creatinine Equation (2020) Hematocrit Auto (Bld) [Volum e fraction]Ordered By: Gallo Palmer on 04-30-2025 Hematocrit (Bld) [Volume fraction] 44.2 % 40-54 [facility] Hemoglobin measurementOrdere d By: Gallo Palmer on 04-30-2025 Hemoglobin (Bld) [Mass/Vol] 14.8 g/dL 13.0-16.5 [facility] Immature granulocytes/100 WB C Auto (Bld)Ordered By: Gallo Palmer on 04-30-2025 Immature granulocytes/100 WBC (Bld) 0.300 % 0.0-0.9 [facility] Comment on above: IG% - Immature Granu locytes (promyelocytes, myelocytes and metamyelocytes) > 1% indicates that a LEFT SHIFT is Present. Ketones Test strip Ql (U)Ord ered By: Gallo Palmer on 04-30-2025 Ketones Ql (U) 5 mg/dl High Negative [facility] L/S Spine Min 4 Viewson 04-07 L/S Spine Min 4 Views [facility] Services [address] [place] [address] L/S Spine Min 4 Views MR#: [id number] Acct: [id number] Name: ALEXI BRICENO Rep #: [id number] : 1960 M 65 From: Mehdi Buenrostro MD PCP: Dr. Gallo Palmer MD Status: REG CLI Study: L/S Spine Min 4 Views Date of Exam: 04/30/25 Exam# [id number] Ordering Dr: Gallo Palmer MD EXAM: XR [...] IMPRESSION: Degenerative changes as above. Reading Location: [facility] CC: Dr. Gallo Palmer MD Manager Developmental: Signed Normal [facility] LDL calc ser/plasOrdered By: Gallo Palmer on 04-30-2025 Cholesterol in LDL [Mass/Vol] 125 mg/dL [facility] Comment on above: Smcqseezuv=740-106 m g/dL & Higher Jmyp=273 mg/dL or greater Laboratory - Chemistry and C hemistry - challengeOrdered By: Gallo Palmer on 04-30-2025 AST [Catalytic activity/Vol] 25 U/L <38 [facility] Comment on above: Hemolysis present, R esults could be affected. Lipid Profileon 04-30-2025 CHOL:HDL 4.20 Normal [facility] Comment on above: Performed By: #### L 3100.5450, L400.0001, L500.4050, L3100.5310, L100.0100, L500.4100, L501.9910 ####[facility] [address] [place], [address] Cholesterol [Mass/Vol] 212 mg/dL High <=200 [facility] Comment on above: Result Comment: Chol esterol level, Desirable <200 mg/dL Borderline high cholesterol 200-239 mg/dL High cholesterol >=240 mg/dL Recommendations of the NCEP Adult Treatment Panel for the following risk-cutoff thresholds for the [place] population. Performed By: #### L 3100.5450, L400.0001, L500.4050, L3100.5310, L100.0100, L500.4100, L501.9910 ####[facility] [address] [place], [address] Cholesterol in HDL [Mass/Vol] 51 mg/dL Normal [facility] Comment on above: Result Comment: Edna onal Cholesterol Education Program (NCEP) guidelines: <40 mg/dL: Low HDL-cholesterol (major risk factor for CHD) >= 60 mg/dL: High HDL-cholesterol (negative risk factor for CHD) HDL-cholesterol is affected by a number of factors, e.g. smoking, exercise, hormones, sex and age. Performed By: #### L 3100.5450, L400.0001, L500.4050, L3100.5310, L100.0100, L500.4100, L501.9910 ####[facility] [address] [place], [address] Cholesterol in LDL [Mass/Vol] 125 mg/dL Normal [facility] Comment on above: Result Comment: Bord zwdzgn=917-883 mg/dL Higher Gkzr=410 mg/dL or greater Performed By: #### L 3100.5450, L400.0001, L500.4050, L3100.5310, L100.0100, L500.4100, L501.9910 ####[facility] [address] [place], [place], [address] Cholesterol in VLDL [Mass/Vol] 36 mg/dL Normal 5-40 [facility] Comment on above: Performed By: #### L 3100.5450, L400.0001, L500.4050, L3100.5310, L100.0100, L500.4100, L501.9910 ####[facility] [address] [place], [place], [id number] Triglyceride [Mass/Vol] 182 mg/dL Normal [facility] Comment on above: Result Comment: The drugs N-Acetylcysteine and Metamizole may falsely depress this assay. Normal range: <150 mg/dL Borderline High: 150-199 mg/dL High: 200-499 mg/dL Very High: >500 mg/dL Performed By: #### L 3100.5450, L400.0001, L500.4050, L3100.5310, L100.0100, L500.4100, L501.9910 ####[facility] [id number] [place], [place], [id number] MCV (mean corpuscular volume ) determinationOrdered By: Gallo Palmer on 04-30-2025 MCV (RBC) [Entitic vol] 89.8 fL 80-94 [facility] Mean corpuscular hemoglobin (MCH) determinationOrdered By: Gallo Palmer on 04-30-2025 MCH (RBC) [Entitic mass] 30.1 pg 27.0-32.0 [facility] Mean corpuscular hemoglobin concentration (MCHC) determinationOrdered By: Gallo Palmer on 04-30-2025 MCHC (RBC) [Mass/Vol] 33.5 g/dL 32-36 [facility] Mean platelet volume determi nationOrdered By: Gallo Palmer on 04-30-2025 Platelet mean volume (Bld) [Entitic vol] 10.7 fL 6.2-12.0 [facility] Microscopic analysis of urin e for red blood cells (RBC)Ordered By: Gallo Palmer on 04-30-2025 Microscopic analysis of urine for red blood cells (RBC) 0 SEEN /hpf 0-5 [facility] Monocyte percentageOrdered B y: Gallo Palmer on 04-30-2025 Monocytes/100 WBC (Bld) 5.9 % 0-10 [facility] Mucus LM Ql (Urine sed)Order ed By: Gallo Palmer on 04-30-2025 Mucus Ql (Urine sed) 0 SEEN /hpf [facility] Neutrophil percentageOrdered By: Ruthmanzanolazeeshan Palmer on 04-30-2025 Neutrophils/100 WBC (Bld) 54.1 % 47-70 [facility] Nitrite Test strip Ql (U)Ord ered By: Gallo Palmer on 04-30-2025 Nitrite Ql (U) Negative Negative [facility] Nucleated red blood cell per centageOrdered By: Gallo Palmer on 04-30-2025 Nucleated RBC/100 WBC (Bld) [Ratio] 0 % 0-5 [facility] PSA,Total - Annual Screenon 04-30-2025 PSA,TOT SCREEN 1.35 ng/mL Normal 0.02-4.00 [facility] Comment on above: Result Comment: This test [...] 3100.5450, L400.0001, L500.4050, L3100.5310, L100.0100, L500.4100, L501.9910 ####[facility] [address] [place], [address] Platelet countOrdered By: Evelina Palmer on 04-30-2025 Platelets (Bld) [#/Vol] 190 10*3/uL 150-450 [facility] Potassium measurement (mass/ volume)Ordered By: Gallo Palmer on 04-30-2025 Potassium (Unsp spec) [Mass/Vol] 4.1 mmol/L 3.3-5.1 [facility] Comment on above: Hemolysis present, R esults could be affected. Protein Test strip Ql (U)Ord ered By: Gallo Palmer on 04-30-2025 Protein Ql (U) Negative Negative [facility] RBC Auto (Bld) [#/Vol]Ordere d By: Gallo Palmer on 04-30-2025 RBC (Bld) [#/Vol] 4.92 10*6/uL 4.6-6.2 [facility] Screening total cholesterol/ high density lipoprotein (HDL) cholesterol ratioOrdered By: Gallo Palmer on 04-30-2025 Cholesterol.total/Choles terol in HDL [Mass ratio] 4.20 {ratio} [facility] Serum DNA double strand anti body assay (units/volume)Ordered By: Gallo Palmer on 04-30-2025 DNA double strand Ab Qn (S) [facility] Comment on above: Test not performed Serum Scl-70 antibody assay (units/volume)Ordered By: Gallo Palmer on 04-30-2025 SCL-70 extractable nuclear Ab Qn (S) [facility] Comment on above: Test not performed Serum creatinine measurement (mass/volume)Ordered By: Gallo Palmer on 04-30-2025 Creatinine [Mass/Vol] 0.98 mg/dL 0.70-1.20 [facility] Serum globulin measurementOr dered By: Gallo Palmer on 04-30-2025 Globulin (S) [Mass/Vol] 2.8 g/dL 2.2-4.2 [facility] Serum glucose measurement (m ass/volume)Ordered By: Gallo Palmer on 04-30-2025 Glucose [Mass/Vol] 414 mg/dL High 70-99 [facility] Serum or plasma alanine talbot otransferase (ALT) measurementOrdered By: Gallo Palmer on 04-30-2025 ALT [Catalytic activity/Vol] 37 U/L <47 [facility] Serum or plasma albumin edel urement (mass/volume)Ordered By: Gallo Palmer on 04-30-2025 Albumin [Mass/Vol] 4.1 g/dL 3.4-4.8 [facility] Serum or plasma albumin/glob ulin mass ratioOrdered By: [facility] Dustinsamantha 04-30-2025 Albumin/Globulin [Mass ratio] 1.5 {ratio} 0.9-2.4 [facility] Serum or plasma alkaline humberto sphatase measurementOrdered By: [facility] Dustinsamantha 04-30-2025 ALP [Catalytic activity/Vol] 105 U/L 40-129 [facility] Serum or plasma calcium edel urement (mass/volume)Ordered By: [facility] 04-30-2025 Calcium [Mass/Vol] 9.2 mg/dL 7.6-11.0 [facility] Serum or plasma cholesterol in HDL measurement (mass/volume)Ordered By: Gallo Palmer 04-30-2025 Cholesterol in HDL [Mass/Vol] 51 mg/dL >40 [facility] Comment on above: National Cholesterol Education Program (NCEP) guidelines:<40 mg/dL: Low HDL-cholesterol (major risk factor for CHD)>= 60 mg/dL: High HDL-cholesterol (negative risk factor for CHD)HDL-cholesterol is affected by a number of factors, e.g. smoking, exercise, hormones, sex and age. Serum or plasma cholesterol measurement (mass/volume)Ordered By: Danielzeeshan Palmer on 04-30-2025 Cholesterol [Mass/Vol] 212 mg/dL High <201 [facility] Comment on above: Cholesterol level, D esirable <200 mg/dLBorderline high cholesterol 200-239 mg/dLHigh cholesterol >=240 mg/dLRecommendations of the NCEP Adult Treatment Panel for the following risk-cutoff thresholds for the [place] population. Serum or plasma free testost erone measurement (mass/volume)Ordered By: Danielzeeshan Palmer 04-30-2025 Testosterone Free [Mass/Vol] 7.78 ng/dL 5.00-21.00 [facility] Serum or plasma urea nitroge n measurement (mass/volume)Ordered By: Gallo Palmer on 04-30-2025 Urea nitrogen [Mass/Vol] 9 mg/dL 4-19 [facility] Shoulder min 2 Viewson 04-30 Shoulder min 2 Views [facility] Imaging Services [address] [place], [place] [id number] [phone] Shoulder min 2 Views MR#: [id number] Acct: [id number] Name: KAITYALEXI SANTO Rep #: [id number] : 1960 M 65 From: Mehdi Buenrostro MD PCP: Dr. Gallo Palmer MD Status: REG CLI Study: Shoulder min 2 Views Date of Exam: 04/30/25 Exam# [id number] Ordering Dr: Gallo Palmer MD EXAM: XR [...] IMPRESSION: Degenerative changes as above. Reading Location: [facility] CC: Dr. Gallo Palmer MD Manager Developmental: Signed Normal [facility] Shoulder min 2 Views [facility] Imaging Services [address] [place], [place] [address] Shoulder min 2 Views MR#: [id number] Acct: [id number] Name: EMY BRICENODoreen BLANCHARD Rep #: [id number] : 1960 M 65 From: Charli Navas PCP: Dr. Gallo Palmer MD Status: REG CLI Study: Shoulder min 2 Views Date of Exam: 04/30/25 Exam# [id number] Ordering Dr: Gallo Palmer MD PROCEDURE: SHOULDER MIN 2 VIEWS 04/30/2025 REASON FOR EXAM: PAIN TECHNIQUE: SHOULDER MIN 2 VIEWS COMPARISON: None RAD/Shoulder min 2 Views IMPRESSION: No acute fracture or dislocations. Mild degenerative changes of the right shoulder. No large joint effusion. No acute soft tissue abnormalities. No radiographic foreign body. Reading Location: [facility] CC: Dr. Gallo Palmer MD Manager Developmental: Signed Normal [facility] Sodium levelOrdered By: Ruth Palmer on 04-30-2025 Sodium [Moles/Vol] 132 mmol/L Low 133-145 [facility] Squamous epithelial cells de tection in urine sediment by light microscopyOrdered By: Gallo Palmer on 04-30-2025 Epithelial cells.squamous LM Ql (Urine sed) 0-5 SEEN /hpf 0-5 [facility] Testosterone, totalOrdered B y: Gallo Palmer on 04-30-2025 Testosterone [Mass/Vol] 273 ng/dL 264-916 [facility] Comment on above: Adult male reference interval is based on a population ofhealthy nonobese males (BMI <30) between 19 and 39 yearsold. Breann, et.al. JCEM 2017,102;8658-0765. PMID:[id number]. Total proteinOrdered By: Kuldeep Palmer on 04-30-2025 Protein [Mass/Vol] 6.9 g/dL 5.9-8.4 [facility] Triglycerides measurementOrd ered By: Gallo Palmer on 04-30-2025 Triglyceride [Mass/Vol] 182 mg/dL <199 [facility] Comment on above: The drugs N-Acetylcy steine and Metamizole may falsely depress this assay. Normal range: <150 mg/dLBorderline High: 150-199 mg/dLHigh: 200-499 mg/dLVery High: >500 mg/dL Urinalysis, Completeon 04-30 EPI,SQUAMOUS 0-5 SEEN Normal 0-5 [facility] Comment on above: Order Comment: COLLE CTOR TO SPECIFY Performed By: #### L 3100.2050, L400.0001, L500.4050, L3100.5310, L100.0100, L500.4100, L501.9910 #### [facility] [address] [place], [address] BACTERIA 0 SEEN Normal None Seen [facility] Comment on above: Order Comment: COLLE CTOR TO SPECIFY Performed By: #### L 3100.5450, L400.0001, L500.4050, L3100.5310, L100.0100, L500.4100, L501.9910 #### [facility] [address] [place], [address] Mucus Ql (Urine sed) 0 SEEN Normal [facility] Comment on above: Order Comment: COLLE CTOR TO SPECIFY Performed By: #### L 3100.5450, L400.0001, L500.4050, L3100.5310, L100.0100, L500.4100, L501.9910 #### [facility] [address] [place], [address] RBC 0 SEEN Normal 0-5 [facility] Comment on above: Order Comment: COLLE CTOR TO SPECIFY Performed By: #### L 3100.5450, L400.0001, L500.4050, L3100.5310, L100.0100, L500.4100, L501.9910 #### [facility] [address] [place], [address] WBC 0 SEEN Normal 0-5 [facility] Comment on above: Order Comment: COLLE CTOR TO SPECIFY Performed By: #### L 3100.5450, L400.0001, L500.4050, L3100.5310, L100.0100, L500.4100, L501.9910 #### [facility] [address] [place], [address] Urine clarityOrdered By: Kuldeep Palmer on 04-30-2025 Clarity (U) Clear Clear [facility] Urine color determinationOrd ered By: Gallo Palmer on 04-30-2025 Color (U) Yellow Yellow [facility] Urine glucose detectionOrder ed By: Gallo Palmer on 04-30-2025 Glucose Ql (U) 1000 mg/dl High Normal [facility] Urine leukocyte esterase det ection by dipstickOrdered By: Gallo Palmer on 04-30-2025 Leukocyte esterase Test strip Ql (U) Negative Negative [facility] Urine pHOrdered By: Jens Palmer on 04-30-2025 pH (U) 5.0 [pH] 5.0 - 8.0 [facility] Urine sediment bacteria coun t by microscopy (number/high power field)Ordered By: Gallo Palmer on 04-30-2025 Bacteria LM.HPF (Urine sed) [#/Area] 0 /[HPF] None Seen [facility] Urine specific gravity measu rementOrdered By: Gallo Palmer on 04-30-2025 Specific gravity (U) [Rel density] 1.015 1.002-1.030 [facility] Urine urobilinogen measureme ntOrdered By: Gallo Palmer on 04-30-2025 Urobilinogen Ql (U) Normal mg/dl Normal [facility] White blood cell (WBC) count Ordered By: Gallo Palmer on 04-30-2025 WBC (Bld) [#/Vol] 6.0 10*3/uL 4.4-11.0 [facility] White blood cell countOrdere d By: Gallo Palmer on 04-30-2025 White blood cell count 0 SEEN /hpf 0-5 [facility] Internal Medicine Office Vis lyndsey 04-29-2025 Internal Medicine Office Visit [facility] [address] [place] [address] [address] [place], [place] [address] OFFICE VISIT Date of Service: 04/29/25 MR#: [id number] Acct: [id number] Name: ALEXI BRICENO (LISS) Rep #: [id number] : 1960 Provider: Dr. Gallo zepeda MD Age/Sex: 65/M Location: [facility] Status: Signed Intake Vital Signs 04/29/25 14:44 [...] PPWK SENT Chief Complaint: Establish Care. Concerns. Paper Rewinder Required: No Accompanied by: Is patient in [...] noting increased fatigue and slowing down since fdc. Attestation: Documentation on this patient encounter was [...] at res (more content not included)... Normal [facility] Vital Signs Date Time Vital Sign Value Performing Clinician Faci lity 06-04-2025 10:20-0400 Body height 177.[address] Fabian Kraft MD Work Phone: [facility] 06-04-2025 10:20-0400 Body mass index (BMI) [Ratio] 29.5 kg/m2 Dr. Fabian Kraft MD Work Phone: 5([phone])851-835009 [place] [address] 06-04-2025 10:20-0400 Body temperature 97.4 [degF] Dr. Fabian Kraft MD Work Phone: 1(958)600-[address]121 [place] [address] 06-04-2025 10:20-0400 Body weight 93.[address] Fabian Kraft MD Work Phone: 3(604)682-871709 [place] [address] 06-04-2025 10:20-0400 Diastolic blood pressure 62 mm[Hg] Dr. Fabian Kraft MD Work Phone: 3(694)005-249009 [place] [address] 06-04-2025 10:20-0400 Heart rate 94 /min Dr. Fabian Kraft MD Work Phone: 8(275)368-095709 [place] [address] 06-04-2025 10:20-0400 Respiratory rate 18 /min Dr. Fabian Kraft MD Work Phone: 1(965)256-294409 [place] [address] 06-04-2025 10:20-0400 SaO2% (BldA) [Mass fraction] 92 % Dr. Fabian Kraft MD Work Phone: 9(082)749-450809 [place] [address] 06-04-2025 10:20-0400 Systolic blood pressure 118 mm[Hg] Dr. Fabian Kraft MD Work Phone: 9(410)641-813809 [place] [address] 04-29-2025 14:44-0400 Body height 177.[address] Fabian Kraft MD Work Phone: 8(430)756-436209 [place] [address] 04-29-2025 14:44-0400 Body mass index (BMI) [Ratio] 30.1 kg/m2 Dr. Fabian Kraft MD Work Phone: [facility] 04-29-2025 14:44-0400 Body temperature 97.6 [degF] Dr. Fabian Kraft MD Work Phone: [facility] 04-29-2025 14:44-0400 Body weight 95.[address] Fabian Kraft MD Work Phone: [facility] 04-29-2025 14:44-0400 Diastolic blood pressure 64 mm[Hg] Dr. Fabian Kraft MD Work Phone: [facility] 04-29-2025 14:44-0400 Heart rate 92 /min Dr. Fabian Kraft MD Work Phone: 9(033)416-744909 [place] [address] 04-29-2025 14:44-0400 Respiratory rate 16 /min Dr. Fabian Kraft MD Work Phone: [facility] 04-29-2025 14:44-0400 SaO2% (BldA) [Mass fraction] 96 % Dr. Fabian Kraft MD Work Phone: [facility] 04-29-2025 14:44-0400 Systolic blood pressure 100 mm[Hg] Dr. Fabian Kraft MD Work Phone: [facility] Encounters Encounter Date Encounter Type Care Provider Facility Start: 06-04-2025 End: 06-04-[address] Gallo Palmer MD -[facility] Work Phone: Start: 06-04-2025 End: 06-04-[address] Fabian Kraft MD Work Phone: -[facility] Start: 05-28-2025 ambulatory Gallo Kendall ty:[facility] Start: 05-28-[address] Haritha Palmer MD -Physical Therapy Work Phone: Start: 05-06-2025 End: 05-06-2025 Patient encounter procedure BIM NURSE -[facility] Work Phone: Start: 05-06-2025 End: 05-06-[address] Fabian Kraft MD Work Phone: -[facility] Start: 05-04-2025 Non-patient / Non-visit Dr. Evelina Palmer MD -[facility] Start: 05-04-[address] Fabian Yang MD Work Phone: -[facility] Start: 04-30-2025 End: 04-30-[address] Fabian Kraft MD Work Phone: -[facility] Start: 04-30-2025 End: 04-30-[address] Gallo Palmer MD -[facility] Work Phone: Start: 04-29-2025 End: 04-29-[address] Gallo Palmer MD -[facility] Work Phone: Start: 04-29-2025 End: 04-30-[address] Fabian Kraft MD Work Phone: -[facility] Procedures Date Procedure Procedure Detail Performing Clinician Start: 04-30-[address] [place] Kraft MD Work Phone: Comment on above: Performed at: [address] [id number] Director: Kp Gan PhD, Phone: [phone] Start: 04-30-2025 Antibody to centrome re measurement [...] performed to confirm baseline values. Start: 04-30-2025 SOFTWARE APPLICATION TESTER antibody measurement Dr. Fabian Kraft MD Work [...] Activity Detail Author Start: 04-30-2025 Testosterone measurement [facility] CBC W Auto Different ial panel - Blood [facility] metabo lic 1999 panel - Serum or Plasma [facility] metabo lic 1999 panel - Serum or Plasma [facility] Cytoplasmic ANCA Screen [facility] Hemoglobin A1c/Hemog lobin.total in Blood [facility] Lipid 1996 panel - S halina or Plasma [facility] Prostate specific an tigen measurement [facility] Serum testosterone measurement [facility] Testosterone Free [M ass/volume] in Serum or Plasma [facility] Testosterone measurement [facility] Testosterone measurement [facility] Urine microalbumin/c reatinine ratio measurement [facility] XR Shoulder GE 2 Views [facility] XR Spine Lumbar and Sacrum GE 4 Views [facility] Payers Date Payer Category Payer Self-pay 2024 Unknown [id number] Unknown [id number] 2.16.8 [id number] Unknown [id number] 2.16.8 [id number] Unknown [id number] 2.16.8 [id number] Unknown [id number] 2.16.8 [id number] Unknown [id number] 2.16.8 [id number] Unknown [id number] 2.16.8 [id number] Social History Date Type Detail Facility Tobacco smoking stat [facility] Unknown if ever smoked [facility] Work Phone: Start: 1960 Sex Assigned At Male [facility] Medical Equipment Procedure Code Equipment Code [...] Note Facility 05-01-2025 Radiology Diagnostic study note [facility] Imaging Services [address] [place] [address] Shoulder min 2 Views MR#: [id number] Acct: [id number] Name: ALEXI BRICENO Rep #: [id number] : 1960 M 65 From: Sapna Buenrostro MD PCP: Dr. Gallo Palmer MD Status: R EG CLI Study:Shoulder min 2 Views Date of Exam: 04/30/25 Exam# [id number] Ordering Dr: Samantha Palmer MD EXAM: XR [...] IMPRESSION: Degenerative changes as above. Reading Location: [facility] CC: Dr. Gallo Palmer MD ~ Manager Developmental: Signed [facility] Radiology Diagnostic study note 05-01-2025 Note Date & Type Note Facility 05-01-2025 Radiology Diagnostic study note [facility] Imaging Services [address] [place], [place] [address] L/S Spine Min 4 Views MR#: [id number] Acct: [id number] Name: ALEXI BRICENO Rep #: [id number] : 1960 M 65 From: Sapna Buenrostro MD PCP: Dr. Gallo Palmer MD Status: R EG CLI Study:L/S Spine Min 4 Views Date of Exam: 04/30/25 Exam# [id number] Ordering Dr: Samantha Palmer MD EXAM: XR [...] IMPRESSION: Degenerative changes as above. Reading Location: [facility] CC: Dr. Gallo Palmer MD ~ Manager Developmental: Signed [facility] Radiology Diagnostic study note 04-30-2025 Note Date & Type Note Facility 04-30-2025 Radiology Diagnostic study note [facility] Imaging Services [address] [place] [id number] Shoulder min 2 Views MR#: [id number] Acct: [id number] Name: ALEXI BRICENO Rep #: [id number] : 1960 65 From: Carisa Sommers MD PCP: Dr. Gallo Palmer MD Status: R EG CLI Study:Shoulder min 2 Views Date of Exam: 04/30/25 Exam# [id number] Ordering Dr: Samantha Palmer MD PROCEDURE: SHOULDER MIN 2 VIEWS 04/30/2025 REASON FOR EXAM: PAIN TECHNIQUE: SHOULDER MIN 2 VIEWS COMPARISON: None RAD/Shoulder min 2 Views IMPRESSION: No acute fracture or dislocations. Mild degenerative changes of the right shoulder. No large joint effusion. No acute soft tissue abnormalities. No radiographic foreign body. Reading Location: [id number] CC: Dr. Gallo Palmer MD ~ Manager Developmental: Signed [facility] Evaluation note 04-29-2025 Note Date & Type Note Facility 04-29-2025 Evaluation note Diagnosis Onset Date Resolution Facial dermatitis acute April 292024 2:27pm Lumbar radiculopathy acute April 29, 2025 2:27pm Bilateral shoulder pain chronic J penny 2024 2:27pm Erectile dysfunction chronic April 29, 2025 2:27pm Urinary frequency chronic April 292024 2:27pm [facility] Work Phone: Evaluation note Note Date & Type Note Facility Evaluation note No assessment information availa tahira [facility] Work Phone: Hospital Discharge instructions Note Date & Type Note Facility Hospital Discharge instructions Ambulatory OrdersNutrition Referral Location: None Selected [facility] Work Phone: Reason for referral (narrative) Note Date & Type Note Facility Reason for referral (narrative) No reason for referral information available [facility] Work Phone: Chief Complaint and Reason [...] section and content) DATE CREATED AUTHOR 06/06/2025 [facility] FOR RECORDS PERTAINING TO PATIENTS WHO ARE [...] BE BASED ON THE PRIMARY CLINICAL RECORDS. [employer]. provides no warranty or guarantee of the accuracy or completeness of information in this document.
[2025-07-28 13:23] LABS: AST(SGOT) 21 U/L (<=37); Alanine Aminotransfer ALT/SGPT 27 U/L (<=46); Albumin, Serum 4.2 g/dL (3.4-4.8); Alkaline Phosphatase 68 U/L (40-129); Anion Gap 10 (5-15); BUN 16 mg/dL (4-19); BUN/Creat Ratio 17.2 RATIO (10-20); Calcium,Total 9.6 mg/dL (7.6-11.0); Carbon Dioxide 26.0 mmol/L (21.0-32.0); Chloride 102 mmol/L (98-108); Globulin 2.9 g/dL (2.2-4.2); Glucose 172 mg/dL (70-99); Potassium 4.0 mmol/L (3.3-5.1)
[2025-07-31 13:08] LABS: Testosterone, % Free 1.92 % (1.50-4.20); Testosterone, Free 8.10 ng/dL (5.00-21.00)
== END | disposition home or self-care (01) ==
LOC: LAB 12:12
PROVIDERS: PCP Internal Medicine; Referring Provider Internal Medicine; Visit Provider Internal Medicine
DX: E11.9 Type 2 diabetes mellitus without complications (principal); N52.9 Male erectile dysfunction, unspecified
CPT/HCPCS: 36415; 80053; 83036; 84402; 84403